=== PATIENT | female | born 1950 | race Caucasian/White ===

== ENCOUNTER 2017-05-06 08:48 | Day surgery (SDC) | payer MEDICARE, OTHER ==
[~2017-05-06] VITALS: Wt 67.6 kg
[~2017-05-06 08:48] MED LIST: AMLO10 PO; ASPI325 PO; CARV25 PO; CLON.2 PO; FURO20 PO; Fish Oil 1,0001 EAC3; LAMO25 PO; LISI5 PO; LOSA50 PO; LOSARTAN POTAS100 MG; MAGNESIUM; METHI10 PO; MOVE FREE JOIN1 EACH PO; Multivitamin1 EAC1 PO; NEBI5 PO; Norco 5-325 Ta1 EACH PO; OXCA300 PO; POTCHL10ER PO; PRAV20 PO; TOCO1000; ZINC15
== END 2017-05-06 10:07 | disposition home or self-care (01) ==
LOC: ORSCMMR 08:48
PROVIDERS: Internal Medicine Gastroenterology
PROC: 0DBP8ZX Excision of Rectum, Via Natural or Artificial Opening Endoscopic, Diagnostic (ICD-10-PCS; principal; 2017-05-06 10:00)
DX: Z12.11 Encounter for screening for malignant neoplasm of colon (principal); K62.1 Rectal polyp; K64.4 Residual hemorrhoidal skin tags; K64.8 Other hemorrhoids; K57.30 Diverticulosis of large intestine without perforation or abscess without bleeding; I10 Essential (primary) hypertension; G40.909 Epilepsy, unspecified, not intractable, without status epilepticus; Z79.82 Long term (current) use of aspirin; Z79.899 Other long term (current) drug therapy
CPT/HCPCS: 88305; J7120

== ENCOUNTER → 2017-05-28 | Outpatient (CLI) | payer MEDICARE, OTHER | END | disposition home or self-care (01) | LOC: LAB 17:52 | DX: I25.10 Atherosclerotic heart disease of native coronary artery without angina pectoris (principal); I10 Essential (primary) hypertension; R56.9 Unspecified convulsions | CPT/HCPCS: 80183 ==

== ENCOUNTER → 2017-12-16 | Outpatient (CLI) | payer MEDICARE, OTHER ==
[2017-12-16 18:15] LABS: BASOPHILS ABSOLUTE AUTO 0.04 K/mm3 (0.00-0.23); BASOPHILS PERCENT AUTO 1 % (0-2); EOSINOPHILS ABSOLUTE AUTO 0.17 K/mm3 (0.00-0.68); EOSINOPHILS PERCENT AUTO 3 % (0-6); Hematocrit 38.3 % (33.0-51.0); Hemoglobin 12.7 g/dL (11.5-16.0); IMMATURE GRAN PERCENT AUTO 0 % (0-1); LYMPHOCYTES ABSOLUTE AUTO 2.64 K/mm3 (0.84-5.20); LYMPHOCYTES PERCENT AUTO 52 % (21-46); MONOCYTES PERCENT AUTO 8 % (4-13); Mean Corpuscular HGB 31.6 pg (26.0-34.0); Mean Corpuscular HGB Conc 33.2 g/dL (31.5-36.5); Mean Corpuscular Volume 95 fL (80-100); Mean Platelet Volume 9.5 fL (9.1-12.4); NEUTROPHILS ABSOLUTE AUTO 1.79 K/mm3 (1.96-9.15); NEUTROPHILS PERCENT AUTO 36 % (41-73); Platelet Count 300 K/mm3 (150-400); RDW Coefficient Variation 13.3 % (11.7-14.2); RDW Standard Deviation 46.9 fL (35.1-46.3); Red Blood Cell Count 4.02 M/mm3 (3.80-5.20); White Blood Cell Count 5.04 K/mm3 (4.00-11.30)
[2017-12-16 18:33] LABS: Alanine Aminotransfer (ALT/SGP 63 U/L (12-78); Albumin, Blood 4.1 g/dL (3.4-5.0); Albumin/Globulin Ratio 1.2 (0.8-1.8); Alk Phos 110 U/L (50-136); Anion Gap 7 mmol/L (6-16); Aspartate Aminotrans (AST/SGOT 49 U/L (12-37); Bilirubin, Total 0.3 mg/dL (0.1-1.0); Blood Urea Nitrogen 11 mg/dL (8-24); Bun/Creatinine Ratio 16.9 (12.0-20.0); CO2, Blood 28 mmol/L (21-32); Calcium, Blood 8.8 mg/dL (8.5-10.1); Chloride, Blood 103 mmol/L (98-108); Creatinine, Blood 0.65 mg/dL (0.40-1.00); Globulin, Blood 3.4 g/dL (2.2-4.0); Glomerular Filtration Rate >60 (60-); Glucose, Blood 94 mg/dL (70-99); Potassium, Blood 3.7 mmol/L (3.5-5.5); Sodium, Blood 138 mmol/L (136-145); Total Protein, Blood 7.5 g/dL (6.4-8.2)
== END ==
LOC: LAB SHORT 09:21 → LAB 09:21
PROVIDERS: Nurse Practitioner Adult Health
DX: I10 Essential (primary) hypertension (principal); B19.20 Unspecified viral hepatitis C without hepatic coma
CPT/HCPCS: 80053; 85025

== ENCOUNTER 2018-05-28 13:34 | Observation (INO) | payer MEDICARE ==
[~2018-05-28] VITALS: Ht 167.6 cm; Wt 69.8 kg
[2018-05-28 14:20] LABS: Source, Urine Catheter
[2018-05-28 14:27] LABS: BASOPHILS ABSOLUTE AUTO 0.04 K/mm3 (0.00-0.23); BASOPHILS PERCENT AUTO 0 % (0-2); EOSINOPHILS ABSOLUTE AUTO 0.02 K/mm3 (0.00-0.68); EOSINOPHILS PERCENT AUTO 0 % (0-6); Hematocrit 45.3 % (33.0-51.0); Hemoglobin 14.7 g/dL (11.5-16.0); IMMATURE GRAN ABSOLUTE AUTO 0.07 K/mm3 (0.00-0.10); IMMATURE GRAN PERCENT AUTO 1 % (0-1); LYMPHOCYTES ABSOLUTE AUTO 2.01 K/mm3 (0.84-5.20); LYMPHOCYTES PERCENT AUTO 13 % (21-46); MONOCYTES ABSOLUTE AUTO 0.83 K/mm3 (0.16-1.47); MONOCYTES PERCENT AUTO 5 % (4-13); Mean Corpuscular HGB 32.5 pg (26.0-34.0); Mean Corpuscular HGB Conc 32.5 g/dL (31.5-36.5); Mean Corpuscular Volume 100 fL (80-100); Mean Platelet Volume 9.3 fL (9.1-12.4); NEUTROPHILS PERCENT AUTO 81 % (41-73); Platelet Count 301 K/mm3 (150-400); RDW Coefficient Variation 12.4 % (11.7-14.2); RDW Standard Deviation 46.2 fL (35.1-46.3); Red Blood Cell Count 4.53 M/mm3 (3.80-5.20); White Blood Cell Count 15.47 K/mm3 (4.00-11.30)
[2018-05-28 14:36] LABS: Bilirubin, Urine Neg (Neg); Blood, Urine 3+ (Neg); Glucose Qualitative, Urine Neg (Neg); Ketones, Urine 1+ (Neg); Leukocyte Esterase, Urine Neg (Neg); Nitrite, Urine Neg (Neg); Protein, Urine 3+ (Neg); Specific Gravity, Urine 1.015 (1.003-1.022); Urobilinogen, Urine NORM (Normal); pH, Urine 6.5 (5.0-8.0)
[2018-05-28 14:46] LABS: Alanine Aminotransfer (ALT/SGP 51 U/L (12-78); Albumin, Blood 4.4 g/dL (3.4-5.0); Alk Phos 154 U/L (50-136); Anion Gap 18 mmol/L (6-16); Aspartate Aminotrans (AST/SGOT 51 U/L (12-37); Bilirubin, Total 0.5 mg/dL (0.1-1.0); Blood Urea Nitrogen 9 mg/dL (8-24); Bun/Creatinine Ratio 14.9 (12.0-20.0); CO2, Blood 17 mmol/L (21-32); Calcium, Blood 8.6 mg/dL (8.5-10.1); Chloride, Blood 103 mmol/L (98-108); Globulin, Blood 4.5 g/dL (2.2-4.0); Glomerular Filtration Rate >60 (60-); Glucose, Blood 151 mg/dL (70-99); Potassium, Blood 3.3 mmol/L (3.5-5.5); Sodium, Blood 138 mmol/L (136-145); Total Protein, Blood 8.9 g/dL (6.4-8.2)
[2018-05-28 14:46] LABS: Color, Urine Yellow (P-Yellow)
[2018-05-28 14:47] LABS: Appearance, Urine Clear (Clear)
[2018-05-28 14:48] LABS: White Blood Cells, Urine 0-2 /hpf (0-5)
[2018-05-28 14:49] LABS: Bacteria Rare /hpf; Squamous Epithelial Cells Few /hpf (Few)
[2018-05-28 14:53] LABS: Carbamazepine <0.5 ug/mL (4.0-12.0)
[2018-05-28] MEDS ORDERED: ASCO500 PO (19:31)
[2018-05-28] MEDS ORDERED: CYAN500 PO (20:00)
[2018-05-28] MEDS ORDERED: Calcium 600 MG1 EACH PO (20:02)
[2018-05-28] MEDS ORDERED: MOVE FREE ULTR1 EAC1 PO (20:04)
[2018-05-28] MEDS ORDERED: Allergy Medicat25 MG PO (20:04)
--- NOTE | 2018-05-28 20:07 | NUR ---
SHIFT SUMMARY: Pt arrived to room about 1745 via gurney from ER. Pt opens eyes to her name and is able to state her name in a mumbled, slurred speech. Pt does not follow directions and falls back to sleep just seconds after waking to verbal stimulus. LS with crackles in bases, HR reg. Bt positive. Pulse palp. VSS. was with patient at arrival to room, but had to leave due to being unable to drive at night. Pt placed on bed alarm, call light was in reach. IVF started per orders. Pt attempted to get out of bed just now to "go pee". She pulled off her tele, gown and pulled out the IV. Pt was changed and cleaned up. New IV placed. Report given to night RN.
[2018-05-29 04:15] LABS: BASOPHILS ABSOLUTE AUTO 0.01 K/mm3 (0.00-0.23); BASOPHILS PERCENT AUTO 0 % (0-2); EOSINOPHILS PERCENT AUTO 0 % (0-6); Hematocrit 37.1 % (33.0-51.0); Hemoglobin 12.4 g/dL (11.5-16.0); IMMATURE GRAN ABSOLUTE AUTO 0.02 K/mm3 (0.00-0.10); IMMATURE GRAN PERCENT AUTO 0 % (0-1); LYMPHOCYTES ABSOLUTE AUTO 1.26 K/mm3 (0.84-5.20); LYMPHOCYTES PERCENT AUTO 13 % (21-46); MONOCYTES ABSOLUTE AUTO 0.96 K/mm3 (0.16-1.47); MONOCYTES PERCENT AUTO 10 % (4-13); Mean Corpuscular HGB 31.6 pg (26.0-34.0); Mean Corpuscular HGB Conc 33.4 g/dL (31.5-36.5); Mean Platelet Volume 9.8 fL (9.1-12.4); NEUTROPHILS ABSOLUTE AUTO 7.83 K/mm3 (1.96-9.15); NEUTROPHILS PERCENT AUTO 78 % (41-73); Platelet Count 241 K/mm3 (150-400); RDW Coefficient Variation 12.6 % (11.7-14.2); RDW Standard Deviation 43.9 fL (35.1-46.3); Red Blood Cell Count 3.93 M/mm3 (3.80-5.20); White Blood Cell Count 10.08 K/mm3 (4.00-11.30)
[2018-05-29 04:17] LABS: Mean Corpuscular Volume 94 fL (80-100)
[2018-05-29 04:30] LABS: Anion Gap 9 mmol/L (6-16); Blood Urea Nitrogen 12 mg/dL (8-24); CO2, Blood 23 mmol/L (21-32); Calcium, Blood 8.5 mg/dL (8.5-10.1); Chloride, Blood 107 mmol/L (98-108); Creatinine, Blood 0.63 mg/dL (0.40-1.00); Glomerular Filtration Rate >60 (60-); Glucose, Blood 121 mg/dL (70-99); Sodium, Blood 139 mmol/L (136-145)
--- NOTE | 2018-05-29 06:31 | NUR ---
SHIFT SUMMARY PT ALERT TO SELF AT SHIFT ONSET, BUT T/O SHIFT SHE WAS INCREASINGLY RESPONSIVE TO STAFF. SHE STILL REMAINS SLOW TO RESPOND AND DOES NOT ANSWER ALL QUESTIONS APPROPRIATELY. PT HAS BEEN ABLE TO STAND AND TRANSFER TO BSC WITH ONE TO TWO PERSON ASSIST. PT IS UNSTEADY ON HER FEET, STILL POSTICTAL FOLLOWING INCREASED SEIZURE ACTIVITY YESTERDAY. PT WAS NOT OBSERVED TO HAVE ANY SEIZURES SINCE ARRIVAL IN PCU. SHE HAS SLEPT MAJORITY OF THE SHIFT. PT DENIED ANY UNMET NEEDS, HAS BEEN CONTINENT AT TIMES. VITALS HAVE BEEN STABLE WITH NO ACUTE CHANGES OBSERVED. PT HAS HER BED IN THE LOWEST POSITION, CALL LIGHT IN REACH, 4X SIDE RAILS IN PLACE WITH SEIZURE PADS PRESENT. PT WILL CONTINUE TO BE MONITORED UNTIL HANDOFF TO DAYSHIFT RN.
--- NOTE | 2018-05-29 11:42 | NUR ---
PCU DAYSHIFT ASSUMED CARE OF PT APPROX. 0700. PT BEGINNING TO COME OUT OF POSTICTAL STATE/ SLEEPING AT THIS TIME. PT AWAKENING PT REPORTS FEELINGS "WEIRD" BUT ABLE TO OPEN EYES AND HAVE CONVERSATION. SPEECH SLIGHTLY SLURRED INTITALLY. AFTER PT AWAKE FOR APPROX. 1 HOUR PT SPEACH NO LONG SLURRED PT ABLE TO FOLLOW DIRECTIONS, OPEN MOUTH, STICK TONGUE OUT, SWALLOW ON COMMAND AND PASSED SWALLOW TEST. PT ABLE TO HAVE SOME BREAKFAST AND ABLE TO DRINK AND TAKE MORNING PILLS WITHOUT ANY COMPLICATIONS. ASSESSMENT COMPLETED, VITAL SIGNS STABLE. SEIZURE PADS REMAIN IN PLACE. AND SEIZURE PRECAUTIONS TAKEN PER PROTOCOL. PT REPORTS SHE REMEMEBERS GOING TO BED LAST NIGHT AND THAT IS IT, NOTHING MORE PAST THIS, UNITL THIS MORNING. BED IN LOW POSITION, BED ALARM ON, CALL LIGHT IN REACH AND PT DENIES ANY NEEDS AT THIS TIME.
[2018-05-29] MEDS ORDERED: Trileptal600 MG PO (15:23)
--- NOTE | 2018-05-29 15:46 | NUR ---
DISCHARGE RECIEVED DISCHARGE ORDERS FROM PMD. DISCHARGE PROCESS COMPLETED. REVIEWED DISCHARGE INFORMATION WITH PATIENT AND FAMILY THAT IS AT BEDSIDE. NO CHANGES TO MEDICATIONS. IV REMOVED. ASSISTED PT WITH GETTING DRESSED. PT ESCORTED BY PEER STAFF MEMBER VIA WHEELCHAIR TO AUTOMOBILE. NO S/SX OF ACUTE DISTRESS UPON LEAVING UNIT.
== END 2018-05-29 15:46 | disposition home or self-care (01) ==
LOC: ER 13:34 → PCU 13:35
PROVIDERS: Emergency Medicine; ADMIT Hospitalist
DX: G40.901 Epilepsy, unspecified, not intractable, with status epilepticus (principal); I10 Essential (primary) hypertension; E87.6 Hypokalemia; E87.2 Acidosis; D72.829 Elevated white blood cell count, unspecified; R80.9 Proteinuria, unspecified; E78.00 Pure hypercholesterolemia, unspecified; Z88.8 Allergy status to other drugs, medicaments and biological substances; Z79.899 Other long term (current) drug therapy; Z79.82 Long term (current) use of aspirin; Z87.820 Personal history of traumatic brain injury
CPT/HCPCS: 36415; 70450; 71046; 80048; 80053; 80156; 80175; 80183; 81001; 84146; 85025; 93005; 93010; 96361; 96365; 96366; 96372; 96374; 96375; 99285-25; G0378; J1650; J2060; J3480; J7030; P9612

== ENCOUNTER → 2018-06-04 | Outpatient (CLI) | payer MEDICARE ==
[~2018-06-04] MED LIST changes: +ASCO500 PO; +Allergy Medicat25 MG PO; +CYAN500 PO; +Calcium 600 MG1 EACH PO; +MOVE FREE ULTR1 EAC1 PO; +Trileptal600 MG PO
[2018-06-04 19:31] LABS: Anion Gap 7 mmol/L (6-16); Blood Urea Nitrogen 7 mg/dL (8-24); Bun/Creatinine Ratio 11.2 (12.0-20.0); CO2, Blood 29 mmol/L (21-32); Calcium, Blood 8.7 mg/dL (8.5-10.1); Chloride, Blood 105 mmol/L (98-108); Creatinine, Blood 0.62 mg/dL (0.40-1.00); Free Thyroxine 0.75 ng/dL (0.70-1.60); Glomerular Filtration Rate >60 (60-); Glucose, Blood 90 mg/dL (70-99); Potassium, Blood 3.7 mmol/L (3.5-5.5); Sodium, Blood 141 mmol/L (136-145)
[2018-06-04 19:34] LABS: Thyroid Stimulating Hormone 0.974 uIU/mL (0.360-4.800)
== END ==
LOC: LAB SHORT 18:15 → LAB 18:15
PROVIDERS: Nurse Practitioner Family
DX: E87.6 Hypokalemia (principal); I10 Essential (primary) hypertension
CPT/HCPCS: 80048; 84439; 84443

== ENCOUNTER → 2018-09-08 | Outpatient (CLI) | payer MEDICARE ==
[2018-09-08 18:51] LABS: BASOPHILS ABSOLUTE AUTO 0.08 K/mm3 (0.00-0.23); BASOPHILS PERCENT AUTO 1 % (0-2); EOSINOPHILS ABSOLUTE AUTO 0.29 K/mm3 (0.00-0.68); EOSINOPHILS PERCENT AUTO 5 % (0-6); Hematocrit 40.2 % (33.0-51.0); Hemoglobin 13.4 g/dL (11.5-16.0); IMMATURE GRAN PERCENT AUTO 0 % (0-1); LYMPHOCYTES ABSOLUTE AUTO 2.79 K/mm3 (0.84-5.20); LYMPHOCYTES PERCENT AUTO 44 % (21-46); MONOCYTES ABSOLUTE AUTO 0.65 K/mm3 (0.16-1.47); MONOCYTES PERCENT AUTO 10 % (4-13); Mean Corpuscular HGB 32.2 pg (26.0-34.0); Mean Corpuscular HGB Conc 33.3 g/dL (31.5-36.5); Mean Corpuscular Volume 97 fL (80-100); Mean Platelet Volume 9.6 fL (9.1-12.4); NEUTROPHILS PERCENT AUTO 41 % (41-73); Platelet Count 251 K/mm3 (150-400); RDW Standard Deviation 46.1 fL (35.1-46.3); Red Blood Cell Count 4.16 M/mm3 (3.80-5.20); White Blood Cell Count 6.41 K/mm3 (4.00-11.30)
[2018-09-08 19:34] LABS: Alanine Aminotransfer (ALT/SGP 62 U/L (12-78); Albumin, Blood 4.2 g/dL (3.4-5.0); Albumin/Globulin Ratio 1.1 (0.8-1.8); Alk Phos 126 U/L (50-136); Anion Gap 8 mmol/L (6-16); Aspartate Aminotrans (AST/SGOT 46 U/L (12-37); Bilirubin, Total 0.5 mg/dL (0.1-1.0); Blood Urea Nitrogen 11 mg/dL (8-24); Bun/Creatinine Ratio 18.4 (12.0-20.0); CHOL/HDL RATIO 2.3; CO2, Blood 28 mmol/L (21-32); Calcium, Blood 9.5 mg/dL (8.5-10.1); Carbamazepine <0.5 ug/mL (4.0-12.0); Chloride, Blood 100 mmol/L (98-108); Cholesterol 251 mg/dL (50-200); Globulin, Blood 3.9 g/dL (2.2-4.0); Glomerular Filtration Rate >60 (60-); Glucose, Blood 96 mg/dL (70-99); HDL Cholesterol 111 mg/dL (>39); LDL/HDL RATIO 1.1; Low Density Lipoprotein Chol 122 mg/dL (0-110); Potassium, Blood 3.6 mmol/L (3.5-5.5); Sodium, Blood 136 mmol/L (136-145); Total Protein, Blood 8.1 g/dL (6.4-8.2); Triglycerides 90 mg/dL (30-160); Very Low Density Lipoprot Chol 18 mg/dL (6-32)
== END ==
LOC: LAB SHORT 18:15 → LAB 18:15
PROVIDERS: Nurse Practitioner Family
DX: E78.5 Hyperlipidemia, unspecified (principal); G40.909 Epilepsy, unspecified, not intractable, without status epilepticus; I10 Essential (primary) hypertension
CPT/HCPCS: 80053; 80061; 80156; 85025

== ENCOUNTER → 2018-09-30 | Outpatient (CLI) | payer MEDICARE | END | disposition home or self-care (01) | LOC: LAB 18:10 → LAB SHORT 18:10 | PROVIDERS: Nurse Practitioner Family | DX: G40.319 Generalized idiopathic epilepsy and epileptic syndromes, intractable, without status epilepticus (principal); G40.909 Epilepsy, unspecified, not intractable, without status epilepticus; Z87.820 Personal history of traumatic brain injury | CPT/HCPCS: 80175; 80183 ==

== ENCOUNTER → 2018-12-10 | Outpatient (CLI) | payer MEDICARE, OTHER ==
[2018-12-10 17:36] LABS: BASOPHILS ABSOLUTE AUTO 0.07 K/mm3 (0.00-0.23); BASOPHILS PERCENT AUTO 1 % (0-2); EOSINOPHILS ABSOLUTE AUTO 0.19 K/mm3 (0.00-0.68); EOSINOPHILS PERCENT AUTO 3 % (0-6); Hematocrit 40.4 % (33.0-51.0); Hemoglobin 13.6 g/dL (11.5-16.0); IMMATURE GRAN ABSOLUTE AUTO 0.01 K/mm3 (0.00-0.10); IMMATURE GRAN PERCENT AUTO 0 % (0-1); LYMPHOCYTES ABSOLUTE AUTO 2.49 K/mm3 (0.84-5.20); LYMPHOCYTES PERCENT AUTO 43 % (21-46); MONOCYTES ABSOLUTE AUTO 0.58 K/mm3 (0.16-1.47); MONOCYTES PERCENT AUTO 10 % (4-13); Mean Corpuscular HGB 32.3 pg (26.0-34.0); Mean Corpuscular HGB Conc 33.7 g/dL (31.5-36.5); Mean Corpuscular Volume 96 fL (80-100); Mean Platelet Volume 9.3 fL (9.1-12.4); NEUTROPHILS ABSOLUTE AUTO 2.47 K/mm3 (1.96-9.15); NEUTROPHILS PERCENT AUTO 42 % (41-73); Platelet Count 306 K/mm3 (150-400); RDW Coefficient Variation 12.3 % (11.7-14.2); RDW Standard Deviation 43.9 fL (35.1-46.3); Red Blood Cell Count 4.21 M/mm3 (3.80-5.20); White Blood Cell Count 5.81 K/mm3 (4.00-11.30)
[2018-12-10 18:00] LABS: Alanine Aminotransfer (ALT/SGP 54 U/L (12-78); Albumin, Blood 4.1 g/dL (3.4-5.0); Albumin/Globulin Ratio 1.1 (0.8-1.8); Alk Phos 141 U/L (50-136); Anion Gap 4 mmol/L (6-16); Aspartate Aminotrans (AST/SGOT 46 U/L (12-37); Bilirubin, Total 0.4 mg/dL (0.1-1.0); Blood Urea Nitrogen 7 mg/dL (8-24); Bun/Creatinine Ratio 11.2 (12.0-20.0); CO2, Blood 29 mmol/L (21-32); Calcium, Blood 9.8 mg/dL (8.5-10.1); Chloride, Blood 101 mmol/L (98-108); Creatinine, Blood 0.62 mg/dL (0.40-1.00); Globulin, Blood 3.8 g/dL (2.2-4.0); Glomerular Filtration Rate >60 (60-); Glucose, Blood 104 mg/dL (70-99); Potassium, Blood 3.9 mmol/L (3.5-5.5); Sodium, Blood 134 mmol/L (136-145); Total Protein, Blood 7.9 g/dL (6.4-8.2)
== END | disposition home or self-care (01) ==
LOC: LAB SHORT 17:20 → LAB 17:20
PROVIDERS: Nurse Practitioner Family
DX: I10 Essential (primary) hypertension (principal)
CPT/HCPCS: 80053; 85025

== ENCOUNTER 2019-01-27 13:04 | Emergency (ER) | payer MEDICARE, OTHER ==
[~2019-01-27] VITALS: Ht 167.6 cm; Wt 74.8 kg
== END 2019-01-27 14:33 | disposition home or self-care (01) ==
LOC: ER 13:04
DX: S59.202A Unspecified physeal fracture of lower end of radius, left arm, initial encounter for closed fracture (principal); S60.212A Contusion of left wrist, initial encounter; I10 Essential (primary) hypertension; G40.909 Epilepsy, unspecified, not intractable, without status epilepticus; E78.5 Hyperlipidemia, unspecified; Z88.8 Allergy status to other drugs, medicaments and biological substances; Z79.899 Other long term (current) drug therapy; Z79.82 Long term (current) use of aspirin; W01.10XA Fall on same level from slipping, tripping and stumbling with subsequent striking against unspecified object, initial encounter
CPT/HCPCS: 29125; 73110; 80053; 85025; 99283-25

== ENCOUNTER → 2019-01-27 | Outpatient (CLI) | payer MEDICARE, OTHER ==
[2019-01-27 19:57] LABS: BASOPHILS ABSOLUTE AUTO 0.05 K/mm3 (0.00-0.23); BASOPHILS PERCENT AUTO 1 % (0-2); EOSINOPHILS ABSOLUTE AUTO 0.13 K/mm3 (0.00-0.68); EOSINOPHILS PERCENT AUTO 2 % (0-6); Hematocrit 40.7 % (33.0-51.0); Hemoglobin 13.8 g/dL (11.5-16.0); IMMATURE GRAN ABSOLUTE AUTO 0.01 K/mm3 (0.00-0.10); IMMATURE GRAN PERCENT AUTO 0 % (0-1); LYMPHOCYTES ABSOLUTE AUTO 2.36 K/mm3 (0.84-5.20); LYMPHOCYTES PERCENT AUTO 33 % (21-46); MONOCYTES ABSOLUTE AUTO 0.64 K/mm3 (0.16-1.47); MONOCYTES PERCENT AUTO 9 % (4-13); Mean Corpuscular HGB 32.2 pg (26.0-34.0); Mean Corpuscular HGB Conc 33.9 g/dL (31.5-36.5); Mean Corpuscular Volume 95 fL (80-100); Mean Platelet Volume 9.4 fL (9.1-12.4); NEUTROPHILS ABSOLUTE AUTO 4.04 K/mm3 (1.96-9.15); NEUTROPHILS PERCENT AUTO 56 % (41-73); Platelet Count 299 K/mm3 (150-400); RDW Coefficient Variation 12.5 % (11.7-14.2); RDW Standard Deviation 43.4 fL (35.1-46.3); Red Blood Cell Count 4.29 M/mm3 (3.80-5.20); White Blood Cell Count 7.23 K/mm3 (4.00-11.30)
[2019-01-27 20:39] LABS: Alanine Aminotransfer (ALT/SGP 73 U/L (12-78); Albumin, Blood 4.2 g/dL (3.4-5.0); Alk Phos 134 U/L (50-136); Anion Gap 8 mmol/L (6-16); Aspartate Aminotrans (AST/SGOT 56 U/L (12-37); Bilirubin, Total 0.5 mg/dL (0.1-1.0); Blood Urea Nitrogen 6 mg/dL (8-24); Bun/Creatinine Ratio 9.6 (12.0-20.0); CO2, Blood 28 mmol/L (21-32); Calcium, Blood 9.5 mg/dL (8.5-10.1); Chloride, Blood 98 mmol/L (98-108); Creatinine, Blood 0.62 mg/dL (0.40-1.00); Globulin, Blood 4.1 g/dL (2.2-4.0); Glomerular Filtration Rate >60 (60-); Glucose, Blood 95 mg/dL (70-99); Potassium, Blood 3.3 mmol/L (3.5-5.5); Sodium, Blood 134 mmol/L (136-145); Total Protein, Blood 8.3 g/dL (6.4-8.2)
== END | disposition home or self-care (01) ==
LOC: LAB 18:17 → LAB SHORT 18:17
PROVIDERS: Nurse Practitioner Family
DX: I10 Essential (primary) hypertension (principal)
CPT/HCPCS: 80053; 85025

== ENCOUNTER → 2019-03-03 | Outpatient (CLI) | payer MEDICARE, OTHER ==
[2019-03-03 20:03] LABS: Anion Gap 7 mmol/L (6-16); Blood Urea Nitrogen 10 mg/dL (8-24); Bun/Creatinine Ratio 15.3 (12.0-20.0); CO2, Blood 30 mmol/L (21-32); Calcium, Blood 9.6 mg/dL (8.5-10.1); Chloride, Blood 92 mmol/L (98-108); Creatinine, Blood 0.65 mg/dL (0.40-1.00); Glomerular Filtration Rate >60 (60-); Glucose, Blood 102 mg/dL (70-99); Potassium, Blood 3.4 mmol/L (3.5-5.5); Sodium, Blood 129 mmol/L (136-145)
== END ==
LOC: LAB SHORT 18:16 → LAB 18:16 → EDSTATUS 03-04 09:20 → LAB FUT 03-04 09:20
PROVIDERS: Nurse Practitioner Family
DX: E87.6 Hypokalemia (principal)
CPT/HCPCS: 80048

== ENCOUNTER → 2019-03-17 | Outpatient (CLI) | payer MEDICARE, SELFPAY ==
[2019-03-17 20:20] LABS: Anion Gap 8 mmol/L (6-16); Blood Urea Nitrogen 5 mg/dL (8-24); Bun/Creatinine Ratio 9.3 (12.0-20.0); CO2, Blood 29 mmol/L (21-32); Calcium, Blood 9.4 mg/dL (8.5-10.1); Chloride, Blood 95 mmol/L (98-108); Creatinine, Blood 0.54 mg/dL (0.40-1.00); Glomerular Filtration Rate >60 (60-); Glucose, Blood 98 mg/dL (70-99); Potassium, Blood 3.7 mmol/L (3.5-5.5); Sodium, Blood 132 mmol/L (136-145)
== END | disposition home or self-care (01) ==
LOC: LAB SHORT 18:14 → LAB 18:14 → EDSTATUS 03-17 11:25 → LAB FUT 03-17 11:25
PROVIDERS: Nurse Practitioner Family
DX: E87.6 Hypokalemia (principal)
CPT/HCPCS: 80048

== ENCOUNTER 2020-01-18 17:15 | Emergency (ER) | payer MEDICARE ==
[~2020-01-18] VITALS: Ht 167.6 cm; Wt 65.8 kg
[2020-01-18] MEDS ORDERED: IBUP600 PO (19:10)
[2020-01-18] MEDS ORDERED: Robaxin-750750 MG PO (19:10)
[2020-01-18] MEDS ORDERED: Norco 5-325 Ta1 EACH PO (19:10)
== END 2020-01-18 19:18 | disposition home or self-care (01) ==
LOC: ER 17:15
DX: M54.5 Low back pain (principal)
CPT/HCPCS: 72100; 99283-25; A9270-GY

== ENCOUNTER → 2020-02-03 | Outpatient (CLI) | payer MEDICARE ==
[~2020-02-03] MED LIST changes: +IBUP600 PO; +Robaxin-750750 MG PO
[2020-02-03 18:22] LABS: Free Thyroxine 0.67 ng/dL (0.70-1.60)
[2020-02-03 18:28] LABS: Thyroid Stimulating Hormone 2.42 uIU/mL (0.360-4.800)
== END | disposition home or self-care (01) ==
LOC: LAB SHORT 16:15 → LAB 16:15
PROVIDERS: Nurse Practitioner Family
DX: M81.0 Age-related osteoporosis without current pathological fracture (principal)
CPT/HCPCS: 82306; 82533; 83970; 84439; 84443; 86376

== ENCOUNTER → 2020-02-24 | Outpatient (CLI) | payer MEDICARE, OTHER | END | disposition home or self-care (01) | LOC: LAB SHORT 15:04 → LAB 15:04 → LAB FUT 02-14 14:30 | PROVIDERS: Nurse Practitioner Family | DX: R89.1 Abnormal level of hormones in specimens from other organs, systems and tissues (principal) | CPT/HCPCS: 81050; 82530 ==

== ENCOUNTER 2020-04-04 12:19 | Emergency (ER) | payer MEDICARE ==
[~2020-04-04] VITALS: Ht 193 cm; Wt 74.8 kg
[2020-04-04] MEDS ORDERED: Carvedilol12.5 MG PO (14:00)
[2020-04-04] MEDS ORDERED: HYDR1TAB94 PO (15:02)
== END 2020-04-04 15:07 | disposition home or self-care (01) ==
LOC: ER 12:19
DX: R07.89 Other chest pain (principal); S06.9X9A Unspecified intracranial injury with loss of consciousness of unspecified duration, initial encounter; R07.81 Pleurodynia; E03.9 Hypothyroidism, unspecified; G40.909 Epilepsy, unspecified, not intractable, without status epilepticus; E78.5 Hyperlipidemia, unspecified; F17.200 Nicotine dependence, unspecified, uncomplicated; Z88.1 Allergy status to other antibiotic agents; Z88.8 Allergy status to other drugs, medicaments and biological substances; Z79.82 Long term (current) use of aspirin; Z79.899 Other long term (current) drug therapy; W01.198A Fall on same level from slipping, tripping and stumbling with subsequent striking against other object, initial encounter
CPT/HCPCS: 71046; 99283-25

== ENCOUNTER → 2020-04-06 | Outpatient (CLI) | payer MEDICARE, SELFPAY ==
[~2020-04-06] MED LIST changes: +Carvedilol12.5 MG PO; +HYDR1TAB94 PO
[2020-04-06 20:03] LABS: CHOL/HDL RATIO 1.7; Cholesterol 195 mg/dL (50-200); HDL Cholesterol 114 mg/dL (>39); LDL/HDL RATIO 0.6; Low Density Lipoprotein Chol 63 mg/dL (0-110); Triglycerides 91 mg/dL (30-160); Very Low Density Lipoprot Chol 18 mg/dL (6-32)
[2020-04-06 20:09] LABS: Alanine Aminotransfer (ALT/SGP 54 U/L (12-78); Albumin, Blood 3.9 g/dL (3.4-5.0); Alk Phos 171 U/L (50-136); Anion Gap 8 mmol/L (6-16); Aspartate Aminotrans (AST/SGOT 54 U/L (12-37); Bilirubin, Total 0.6 mg/dL (0.1-1.0); Blood Urea Nitrogen 8 mg/dL (8-24); Bun/Creatinine Ratio 12.4 (12.0-20.0); CO2, Blood 27 mmol/L (21-32); Calcium, Blood 9.7 mg/dL (8.5-10.1); Chloride, Blood 103 mmol/L (98-108); Creatinine, Blood 0.64 mg/dL (0.40-1.00); Globulin, Blood 3.9 g/dL (2.2-4.0); Glomerular Filtration Rate >60 (60-); Glucose, Blood 102 mg/dL (70-99); Potassium, Blood 4.2 mmol/L (3.5-5.5); Sodium, Blood 138 mmol/L (136-145); Total Protein, Blood 7.8 g/dL (6.4-8.2)
== END | disposition home or self-care (01) ==
LOC: LAB 16:33 → LAB SHORT 16:33
PROVIDERS: Nurse Practitioner Family
DX: G40.909 Epilepsy, unspecified, not intractable, without status epilepticus (principal); E78.5 Hyperlipidemia, unspecified; I10 Essential (primary) hypertension
CPT/HCPCS: 80053; 80061; 80175; 80183

== ENCOUNTER 2020-07-01 08:49 | Emergency (ER) | payer MEDICARE ==
[~2020-07-01] VITALS: Ht 167.6 cm; Wt 74.8 kg
== END 2020-07-01 09:22 | disposition home or self-care (01) ==
LOC: ER 08:49
DX: S01.102D Unspecified open wound of left eyelid and periocular area, subsequent encounter (principal); I10 Essential (primary) hypertension; E78.5 Hyperlipidemia, unspecified; E03.9 Hypothyroidism, unspecified; F17.200 Nicotine dependence, unspecified, uncomplicated; Z88.8 Allergy status to other drugs, medicaments and biological substances; Z79.82 Long term (current) use of aspirin; X58.XXXD Exposure to other specified factors, subsequent encounter

== ENCOUNTER → 2021-01-24 | Outpatient (CLI) | payer MEDICARE ==
[2021-01-24 16:12] LABS: Creatinine Urine 64.6 mg/dL (27.00-270.00)
== END | disposition home or self-care (01) ==
LOC: LAB 07:52 → LAB SHORT 07:52
PROVIDERS: Internal Medicine Endocrinology, Diabetes & Metabolism
DX: E24.9 Cushing's syndrome, unspecified (principal)
CPT/HCPCS: 81050; 82570

== ENCOUNTER → 2021-02-13 | Outpatient (CLI) | payer MEDICARE ==
[2021-02-13 18:20] LABS: BASOPHILS ABSOLUTE AUTO 0.05 K/mm3 (0.00-0.23); BASOPHILS PERCENT AUTO 1 % (0-2); EOSINOPHILS ABSOLUTE AUTO 0.19 K/mm3 (0.00-0.68); EOSINOPHILS PERCENT AUTO 3 % (0-6); Hematocrit 39.3 % (33.0-51.0); IMMATURE GRAN ABSOLUTE AUTO 0.02 K/mm3 (0.00-0.10); IMMATURE GRAN PERCENT AUTO 0 % (0-1); LYMPHOCYTES ABSOLUTE AUTO 2.05 K/mm3 (0.84-5.20); LYMPHOCYTES PERCENT AUTO 27 % (21-46); MONOCYTES ABSOLUTE AUTO 0.61 K/mm3 (0.16-1.47); MONOCYTES PERCENT AUTO 8 % (4-13); Mean Corpuscular HGB 30.7 pg (26.0-34.0); Mean Corpuscular HGB Conc 33.1 g/dL (31.5-36.5); Mean Corpuscular Volume 93 fL (80-100); Mean Platelet Volume 9.8 fL (9.1-12.4); NEUTROPHILS PERCENT AUTO 61 % (41-73); Platelet Count 314 K/mm3 (150-400); RDW Coefficient Variation 13.2 % (11.7-14.2); RDW Standard Deviation 44.8 fL (35.1-46.3); Red Blood Cell Count 4.24 M/mm3 (3.80-5.20); White Blood Cell Count 7.52 K/mm3 (4.00-11.30)
[2021-02-13 18:30] LABS: CHOL/HDL RATIO 2.1; Cholesterol 202 mg/dL (50-200); HDL Cholesterol 95 mg/dL (>39); LDL/HDL RATIO 0.8; Low Density Lipoprotein Chol 79 mg/dL (0-110); Triglycerides 141 mg/dL (30-160); Very Low Density Lipoprot Chol 28 mg/dL (6-32)
[2021-02-13 18:50] LABS: Alanine Aminotransfer (ALT/SGP 57 U/L (12-78); Albumin, Blood 4.1 g/dL (3.4-5.0); Alk Phos 159 U/L (50-136); Anion Gap 7 mmol/L (6-16); Aspartate Aminotrans (AST/SGOT 58 U/L (12-37); Bilirubin, Total 0.5 mg/dL (0.1-1.0); Blood Urea Nitrogen 8 mg/dL (8-24); Bun/Creatinine Ratio 10.6 (12.0-20.0); CO2, Blood 29 mmol/L (21-32); Calcium, Blood 10.1 mg/dL (8.5-10.1); Chloride, Blood 103 mmol/L (98-108); Creatinine, Blood 0.75 mg/dL (0.40-1.00); Globulin, Blood 4.2 g/dL (2.2-4.0); Glomerular Filtration Rate >60 (60-); Glucose, Blood 110 mg/dL (70-99); Sodium, Blood 139 mmol/L (136-145); Total Protein, Blood 8.3 g/dL (6.4-8.2)
== END | disposition home or self-care (01) ==
LOC: LAB SHORT 16:27
PROVIDERS: Nurse Practitioner Family
DX: E78.5 Hyperlipidemia, unspecified (principal); G40.909 Epilepsy, unspecified, not intractable, without status epilepticus; I10 Essential (primary) hypertension
CPT/HCPCS: 80053; 80061; 80175; 84443; 85025

== ENCOUNTER → 2021-11-28 | Outpatient (CLI) | payer MEDICARE | END | disposition home or self-care (01) | LOC: LAB SHORT 08:10 → LAB 08:10 | PROVIDERS: Psychiatry & Neurology Neurology | DX: G40.219 Localization-related (focal) (partial) symptomatic epilepsy and epileptic syndromes with complex partial seizures, intractable, without status epilepticus (principal); Z87.820 Personal history of traumatic brain injury | CPT/HCPCS: 80175; 80183 ==

== ENCOUNTER 2022-01-23 18:39 | Inpatient (IN) | payer MEDICARE ==
[~2022-01-23] VITALS: Ht 167.6 cm; Wt 78.8 kg
[2022-01-23 19:47] LABS: BASOPHILS ABSOLUTE AUTO 0.07 K/mm3 (0.00-0.23); BASOPHILS PERCENT AUTO 1 % (0-2); EOSINOPHILS ABSOLUTE AUTO 0.45 K/mm3 (0.00-0.68); EOSINOPHILS PERCENT AUTO 5 % (0-6); Hematocrit 32.9 % (33.0-51.0); Hemoglobin 11.2 g/dL (11.5-16.0); IMMATURE GRAN ABSOLUTE AUTO 0.07 K/mm3 (0.00-0.10); IMMATURE GRAN PERCENT AUTO 1 % (0-1); LYMPHOCYTES ABSOLUTE AUTO 2.32 K/mm3 (0.84-5.20); LYMPHOCYTES PERCENT AUTO 24 % (21-46); MONOCYTES ABSOLUTE AUTO 1.16 K/mm3 (0.16-1.47); MONOCYTES PERCENT AUTO 12 % (4-13); Mean Corpuscular HGB 32.9 pg (26.0-34.0); Mean Corpuscular Volume 97 fL (80-100); NEUTROPHILS ABSOLUTE AUTO 5.42 K/mm3 (1.96-9.15); NEUTROPHILS PERCENT AUTO 57 % (41-73); Platelet Count 340 K/mm3 (150-400); RDW Coefficient Variation 13.6 % (11.7-14.2); White Blood Cell Count 9.49 K/mm3 (4.00-11.30)
[2022-01-23 19:59] LABS: Albumin/Globulin Ratio 0.8 (0.8-1.8); Bilirubin, Total 0.9 mg/dL (0.1-1.0); Bun/Creatinine Ratio 33.1 (12.0-20.0); Creatinine, Blood 0.54 mg/dL (0.40-1.00); Potassium, Blood 3.9 mmol/L (3.5-5.5)
[2022-01-23 20:26] LABS: Creatine Kinase MB 2.4 ng/mL (0.0-3.6); Creatine Kinase MB Index 0.4 (0.0-4.0)
[2022-01-23 20:55] LABS: Source, Urine Clean Catch
[2022-01-23 20:58] LABS: Appearance, Urine Hazy (Clear); Bilirubin, Urine Neg (Neg); Blood, Urine Neg (Neg); Color, Urine Amber (P-Yellow); Glucose Qualitative, Urine Neg (Neg); Ketones, Urine Neg (Neg); Leukocyte Esterase, Urine 1+ (Neg); Nitrite, Urine Neg (Neg); Protein, Urine 2+ (Neg); Specific Gravity, Urine 1.025 (1.003-1.022); Urobilinogen, Urine 1+ (Normal)
[2022-01-23 21:33] LABS: Amorphous Heavy (0-Heavy); Bacteria Mod /hpf; Red Blood Cells, Urine Not Seen /hpf (0-2); Squamous Epithelial Cells Few /hpf (Few)
[2022-01-24 00:30] LABS: SARS-Cov-2 (COVID-19) PCR, MMC NEGATIVE (NEGATIVE)
--- NOTE | 2022-01-24 00:47 | NUR ---
NEW ADMIT PATIENT TO THE FLOOR AT 2300, VSS, ORIENTED TO ROOM, ORDERS REVIEWED. SURGICAL WASHDOWN COMPLETE. TELE IN PLACE, BP ELEVATED 184/96 HYDRALAZINE GIVEN PER EMAR. WILL REASSESS. PATIENT REPORTS NO PAIN AT THIS TIME. CALL LIGHT IN REACH.
--- NOTE | 2022-01-24 02:47 | NUR ---
PANG CATH PLACED, USING STERILE TECHNIQUE, DRAINING DARK YELLOW CLEAR URINE TO GRAVITY. OFF FLOOR, STAT LOCK IN PLACE.
[2022-01-24 02:48] LABS: Source, Urine Foley catheter
[2022-01-24 03:01] LABS: Appearance, Urine Hazy (Clear); Bilirubin, Urine Neg (Neg); Blood, Urine Neg (Neg); Color, Urine Yellow (P-Yellow); Glucose Qualitative, Urine Neg (Neg); Ketones, Urine 1+ (Neg); Leukocyte Esterase, Urine 2+ (Neg); Nitrite, Urine Neg (Neg); Protein, Urine 2+ (Neg); Urobilinogen, Urine 1+ (Normal)
[2022-01-24 03:02] LABS: Amorphous Mod (0-Heavy); Bacteria Mod /hpf; Red Blood Cells, Urine Not Seen /hpf (0-2); Squamous Epithelial Cells Few /hpf (Few)
[2022-01-24 04:49] LABS: Bun/Creatinine Ratio 28.2 (12.0-20.0); Calcium, Blood 8.5 mg/dL (8.5-10.1); Creatinine, Blood 0.5 mg/dL (0.40-1.00); Potassium, Blood 3.6 mmol/L (3.5-5.5)
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
--- NOTE | 2022-01-24 09:00 | NUR ---
PATIENTS BLOOD PRESSURE REMAINS HIGH AT 169/90. PHONE CALL TO DR CARLOS, GAVE TELEPHONE ORDERS TO GIVE PATIENTS HOME BLOOD PRESSURE MEDICATIONS WITH A SIP OF WATER.
--- NOTE | 2022-01-24 11:45 | NUR ---
PATIENT TO DAY SURGERY VIA BED WITH 2 DAY SURGERY STAFF
--- NOTE | 2022-01-24 16:00 | NUR ---
PATIENT RETURNED TO ROOM FROM PACU. AQUACEL TO R HIP, PATIENT HAS FULL SENSATION TO LOWER EXTREMITIES, WIGGLES TOES. DENIES PAIN AT THIS TIME. LUNGS CLEAR, DIMINISHED IN BASES. PATIENT IS FORGETFUL, BUT EASILY REORIENTED. 2L O2 PLACED D/T SATS DROPPING BELOW 90%. CALL LIGHT IN REACH.
--- NOTE | 2022-01-24 18:14 | NUR ---
SHIFT SUMMARY NO ACUTE CHANGES SINCE PATIENT RETURNED TO ROOM. PATIENT SLEEPING WELL, 2L O2 PLACED D/T O2 SATS DROPPING BELOW 90%. PANG REMAINS IN PLACE, DRAINING DARK YELLOW URINE. PATIENT DENIES PAIN. TOLERATING SIPS OF WATER, HAS NOT YET EATEN. CALL LIGHT IN REACH, WILL REPORT TO ONCOMING RN.
[2022-01-25 04:42] LABS: BASOPHILS ABSOLUTE AUTO 0.04 K/mm3 (0.00-0.23); BASOPHILS PERCENT AUTO 0 % (0-2); EOSINOPHILS ABSOLUTE AUTO 0.29 K/mm3 (0.00-0.68); EOSINOPHILS PERCENT AUTO 3 % (0-6); Hematocrit 29.7 % (33.0-51.0); Hemoglobin 9.9 g/dL (11.5-16.0); IMMATURE GRAN ABSOLUTE AUTO 0.06 K/mm3 (0.00-0.10); IMMATURE GRAN PERCENT AUTO 1 % (0-1); LYMPHOCYTES ABSOLUTE AUTO 2.39 K/mm3 (0.84-5.20); LYMPHOCYTES PERCENT AUTO 26 % (21-46); MONOCYTES ABSOLUTE AUTO 0.92 K/mm3 (0.16-1.47); MONOCYTES PERCENT AUTO 10 % (4-13); Mean Corpuscular HGB 32.6 pg (26.0-34.0); Mean Corpuscular HGB Conc 33.3 g/dL (31.5-36.5); Mean Corpuscular Volume 98 fL (80-100); Mean Platelet Volume 8.6 fL (9.1-12.4); NEUTROPHILS PERCENT AUTO 59 % (41-73); Platelet Count 329 K/mm3 (150-400); RDW Coefficient Variation 13.6 % (11.7-14.2); Red Blood Cell Count 3.04 M/mm3 (3.80-5.20)
--- NOTE | 2022-01-25 04:57 | NUR ---
SHIFT SUMMARY: A&OX2/3. PT WAS VERY TIRED AND GROGGY AT BEGINNING OF SHIFT. CONFUSED AT TIMES REGARDING LOCATION, SITUATION, AND TIME. TOLERATING PO FLUIDS AND JELLO. PT VOIDING, BOTH URINE AND STOOL. AQUACEL X1 IN PLACE ON R HIP. C/D/I AT THIS TIME. PT URINE WAS DARK CHARITO, DISCUSSED WITH MUSIC INSTRUCTOR. DR. CALLEJAS WAS CONTACTED AND ORDER FOR NS WAS ORDERED. PT IS MORE ALERT, AWAKE, AND ANSWERING APPROPRIATELY AT THIS TIME.
[2022-01-25 05:04] LABS: Albumin, Blood 2.6 g/dL (3.4-5.0); Albumin/Globulin Ratio 0.8 (0.8-1.8); Bilirubin, Total 0.7 mg/dL (0.1-1.0); Bun/Creatinine Ratio 21.5 (12.0-20.0); Calcium, Blood 8.3 mg/dL (8.5-10.1); Creatinine, Blood 0.61 mg/dL (0.40-1.00); Globulin, Blood 3.3 g/dL (2.2-4.0); Potassium, Blood 4.1 mmol/L (3.5-5.5); Total Protein, Blood 5.9 g/dL (6.4-8.2)
--- NOTE | 2022-01-25 11:09 | NUR ---
Pt. is awake in a recliner and welcomes my visit. Pt. is pleasant but a little unsettled about her who is (at this moment) undergoing cataract surgery at [facility]. Facilitated a life review and prayed with Pt. Pt. displayed evidence of engagement and trust and reached out her hand to this salon assistant. Prayed wih Pt. Pt. verbalized gratitude for the spiritual care visit.
--- NOTE | 2022-01-25 16:17 | NUR ---
SHIFT SUMMARY POD 1 R ITALO HIP. AQUACEL IN PLACE TO R HIP, C/D/I. PATIENT WORKED WITH PT & OT TODAY, MODERATE 2P ASSIST W/ FWW & GB. MINIMAL PAIN, MANAGED PER EMAR. EATING & DRINKING WELL. PANG REMAINS IN PLACE, DRAINING CLEAR YELLOW URINE. LARGE BM TODAY. ATTENDS IN PLACE. CALLS APPROPRIATELY. WILL REPORT TO ONCOMING RN.
[2022-01-26 04:34] LABS: BASOPHILS ABSOLUTE AUTO 0.04 K/mm3 (0.00-0.23); BASOPHILS PERCENT AUTO 1 % (0-2); EOSINOPHILS ABSOLUTE AUTO 0.24 K/mm3 (0.00-0.68); EOSINOPHILS PERCENT AUTO 3 % (0-6); Hematocrit 27.5 % (33.0-51.0); Hemoglobin 9.6 g/dL (11.5-16.0); IMMATURE GRAN ABSOLUTE AUTO 0.08 K/mm3 (0.00-0.10); IMMATURE GRAN PERCENT AUTO 1 % (0-1); LYMPHOCYTES ABSOLUTE AUTO 1.86 K/mm3 (0.84-5.20); LYMPHOCYTES PERCENT AUTO 24 % (21-46); MONOCYTES ABSOLUTE AUTO 0.82 K/mm3 (0.16-1.47); MONOCYTES PERCENT AUTO 11 % (4-13); Mean Corpuscular HGB 33.4 pg (26.0-34.0); Mean Corpuscular HGB Conc 34.9 g/dL (31.5-36.5); Mean Corpuscular Volume 96 fL (80-100); Mean Platelet Volume 8.7 fL (9.1-12.4); NEUTROPHILS ABSOLUTE AUTO 4.75 K/mm3 (1.96-9.15); NEUTROPHILS PERCENT AUTO 61 % (41-73); Platelet Count 320 K/mm3 (150-400); RDW Coefficient Variation 13.4 % (11.7-14.2); RDW Standard Deviation 46.2 fL (35.1-46.3); Red Blood Cell Count 2.87 M/mm3 (3.80-5.20); White Blood Cell Count 7.79 K/mm3 (4.00-11.30)
[2022-01-26 05:04] LABS: Albumin, Blood 2.4 g/dL (3.4-5.0); Albumin/Globulin Ratio 0.7 (0.8-1.8); Bilirubin, Total 0.7 mg/dL (0.1-1.0); Bun/Creatinine Ratio 24.5 (12.0-20.0); Calcium, Blood 8.6 mg/dL (8.5-10.1); Creatinine, Blood 0.53 mg/dL (0.40-1.00); Globulin, Blood 3.4 g/dL (2.2-4.0); Potassium, Blood 3.7 mmol/L (3.5-5.5); Total Protein, Blood 5.8 g/dL (6.4-8.2)
--- NOTE | 2022-01-26 05:19 | NUR ---
SHIFT SUMMARY PT ALERT AND ORIENTED. PLEASANT AND COOPERATIVE. PT DID NOT NEED PAIN COVERAGE THIS SHIFT. 2 ASSIST WITH FWW/GB. R HIP AQUACEL HAD SOME LIGHT SHADOWING. PANG IN PLACE DRAINING TO GRAVITY, YELLOW/CLEAR. ATTENDS IN PLACE, TOLERATING PO INTAKE. CALLS APPROPRIATELY, CALL LIGHT WITHIN REACH.
--- NOTE | 2022-01-26 17:52 | NUR ---
1 PERSON TRANSFER TO [facility]. PT COOPERATIVE, ORIENTED THROOUGHOUT SHIFT ON OCCASSION REPEATS SAME QUESTION WITHIN A FEW MINUTES.RIGHT HIP DRESSING CHANGED TODAY AND IS DRY AND INTACT. PT HAS DENIED PAIN AND DECLINED ANY PAIN MEDS. PLAN TO TRANSFER PATIENT THIS EVENING TO [facility]. PT IS AWARE OF TRANSFER PLAN AND IS IN AGREEMENT WITH THIS PLAN
[2022-01-26 18:08] LABS: SARS-Cov-2 (COVID-19) PCR, MMC NEGATIVE (NEGATIVE)
--- NOTE | 2022-01-26 18:32 | NUR ---
REPORT PHONED TO MIRIAM AT [facility]
--- NOTE | 2022-01-26 19:05 | NUR ---
1850 discharged via wheelchair with [facility] staff to transfer to [facility]
== END 2022-01-26 18:56 | DRG 522 ==
LOC: ER 18:39 → SURS 21:12
PROVIDERS: Emergency Medicine; Internal Medicine; Orthopaedic Surgery; ADMIT Internal Medicine
PROC: 0SRR0JZ Replacement of Right Hip Joint, Femoral Surface with Synthetic Substitute, Open Approach (ICD-10-PCS; principal; 2022-01-24 12:30)
DX: S72.001A Fracture of unspecified part of neck of right femur, initial encounter for closed fracture (principal); N39.0 Urinary tract infection, site not specified; M62.82 Rhabdomyolysis; Z20.822 Contact with and (suspected) exposure to COVID-19; B95.5 Unspecified streptococcus as the cause of diseases classified elsewhere; I10 Essential (primary) hypertension; G40.909 Epilepsy, unspecified, not intractable, without status epilepticus; R74.01 Elevation of levels of liver transaminase levels; E03.9 Hypothyroidism, unspecified; E78.5 Hyperlipidemia, unspecified; D64.89 Other specified anemias; W18.30XA Fall on same level, unspecified, initial encounter; Y92.009 Unspecified place in unspecified non-institutional (private) residence as the place of occurrence of the external cause; Z79.899 Other long term (current) drug therapy; Z88.8 Allergy status to other drugs, medicaments and biological substances; Z79.82 Long term (current) use of aspirin; Z87.891 Personal history of nicotine dependence; Z87.820 Personal history of traumatic brain injury
CPT/HCPCS: 36415; 51702; 72170; 73130; 73502; 73562-RT; 80048; 80053; 81001; 82550; 82553; 82728; 83540; 83550; 85025; 85027; 87086; 93005; 93010; 97110; 97162; 97166; 97530; 97535; A9270; C1776; J0171; J0360; J0690; J0735; J1100; J1650; J1885; J2250; J2370; J2405; J2704; J2795; J3010; J7030; J7120; P9612; U0004

== ENCOUNTER → 2022-03-10 | Emergency (ER) | payer MEDICARE ==
[~2022-03-10] VITALS: Ht 205.7 cm; Wt 90.7 kg
== END ==
LOC: ER 14:22
DX: S73.004A Unspecified dislocation of right hip, initial encounter (principal); W19.XXXA Unspecified fall, initial encounter; Z88.8 Allergy status to other drugs, medicaments and biological substances; Z79.899 Other long term (current) drug therapy
CPT/HCPCS: 72170; 73502; J1885; J2250; J2704; J3010; J7030

== ENCOUNTER 2022-06-07 12:44 | Emergency (ER) | payer MEDICARE, OTHER ==
[~2022-06-07] VITALS: Ht 167.6 cm; Wt 68.0 kg
[~2022-06-07 12:44] MED LIST changes: +HYDRA50 PO; +LAMO100; +METO100ER PO; +NAPROXEN250 M1 PO; +SENN187; +TRILEPTAL600 M3 PO
[2022-06-07 13:18] LABS: BASOPHILS ABSOLUTE AUTO 0.06 K/mm3 (0.00-0.23); BASOPHILS PERCENT AUTO 1 % (0-2); EOSINOPHILS ABSOLUTE AUTO 0.24 K/mm3 (0.00-0.68); EOSINOPHILS PERCENT AUTO 3 % (0-6); Hematocrit 33.8 % (33.0-51.0); IMMATURE GRAN ABSOLUTE AUTO 0.02 K/mm3 (0.00-0.10); IMMATURE GRAN PERCENT AUTO 0 % (0-1); LYMPHOCYTES ABSOLUTE AUTO 1.34 K/mm3 (0.84-5.20); LYMPHOCYTES PERCENT AUTO 18 % (21-46); MONOCYTES ABSOLUTE AUTO 0.82 K/mm3 (0.16-1.47); MONOCYTES PERCENT AUTO 11 % (4-13); Mean Corpuscular HGB 32.4 pg (26.0-34.0); Mean Corpuscular HGB Conc 35.5 g/dL (31.5-36.5); Mean Corpuscular Volume 91 fL (80-100); NEUTROPHILS ABSOLUTE AUTO 5.12 K/mm3 (1.96-9.15); NEUTROPHILS PERCENT AUTO 67 % (41-73); Platelet Count 325 K/mm3 (150-400); RDW Coefficient Variation 13.9 % (11.7-14.2); RDW Standard Deviation 47.1 fL (35.1-46.3)
[2022-06-07 13:46] LABS: Albumin, Blood 3.4 g/dL (3.4-5.0); Albumin/Globulin Ratio 0.9 (0.8-1.8); Bilirubin, Total 0.5 mg/dL (0.1-1.0); Bun/Creatinine Ratio 26.4 (12.0-20.0); Calcium, Blood 8.9 mg/dL (8.5-10.1); Creatinine, Blood 0.49 mg/dL (0.40-1.00); Globulin, Blood 3.6 g/dL (2.2-4.0); Magnesium, Blood 1.8 mg/dL (1.6-2.4); Potassium, Blood 3.4 mmol/L (3.5-5.5); Prolactin 8.3 ng/mL (2.74-19.64)
== END 2022-06-07 18:53 | disposition home or self-care (01) ==
LOC: ER 12:44
PROVIDERS: Student in an Organized Health Care Education/Training Program
DX: G40.909 Epilepsy, unspecified, not intractable, without status epilepticus (principal); Z87.820 Personal history of traumatic brain injury; I10 Essential (primary) hypertension; F17.200 Nicotine dependence, unspecified, uncomplicated; Z88.8 Allergy status to other drugs, medicaments and biological substances; Z79.899 Other long term (current) drug therapy; Z79.82 Long term (current) use of aspirin
CPT/HCPCS: 70450; 80053; 82947; 83735; 84145; 84146; 85025; 93005; 93010; 99284-25; A9270; J7030

== ENCOUNTER → 2022-07-05 | Outpatient (CLI) | payer MEDICARE, OTHER ==
[~2022-07-05] MED LIST changes: +Acetaminophen325 M1 PO; +CEFD300 PO; +MULVITA PO; -Multivitamin1 EAC1 PO; +Oxcarbazepine300 MG PO; -SENN187; +SENN187 PO; +SPIRONOLACTONE25 MG PO; -TRILEPTAL600 M3 PO
[2022-07-05 18:00] LABS: Hematocrit 34.4 % (33.0-51.0); Mean Corpuscular HGB 31.7 pg (26.0-34.0); Mean Corpuscular HGB Conc 34.9 g/dL (31.5-36.5); Mean Corpuscular Volume 91 fL (80-100); Mean Platelet Volume 8.6 fL (9.1-12.4); Platelet Count 329 K/mm3 (150-400); RDW Coefficient Variation 13.8 % (11.7-14.2); RDW Standard Deviation 46.3 fL (35.1-46.3); Red Blood Cell Count 3.79 M/mm3 (3.80-5.20); White Blood Cell Count 5.09 K/mm3 (4.00-11.30)
[2022-07-05 18:08] LABS: Appearance, Urine Hazy (Clear); Bilirubin, Urine Neg (Neg); Blood, Urine 2+ (Neg); Color, Urine Yellow (P-Yellow); Glucose Qualitative, Urine Neg (Neg); Ketones, Urine Neg (Neg); Leukocyte Esterase, Urine 3+ (Neg); Nitrite, Urine Pos (Neg); Protein, Urine 3+ (Neg); Urobilinogen, Urine NORM (Normal)
[2022-07-05 18:36] LABS: Squamous Epithelial Cells Few /hpf (Few); White Blood Cells, Urine 50-100 /hpf (0-5)
[2022-07-05 18:37] LABS: Bacteria Many /hpf; Calcium Oxalate Crystals Few /hpf
[2022-07-05 19:31] LABS: Bun/Creatinine Ratio 22.1 (12.0-20.0); Calcium, Blood 9.3 mg/dL (8.5-10.1); Creatinine, Blood 0.54 mg/dL (0.40-1.00); Potassium, Blood 3.6 mmol/L (3.5-5.5)
== END | disposition home or self-care (01) ==
LOC: EDSTATUS 15:45 → LAB SHORT 16:18 → LAB UVN 16:18
PROVIDERS: Internal Medicine
DX: N39.0 Urinary tract infection, site not specified (principal)
CPT/HCPCS: 80048; 81001; 85027; 87077; 87086; 87186

== ENCOUNTER 2022-07-16 23:44 | Inpatient (IN) | payer MEDICARE, OTHER ==
[~2022-07-16] VITALS: Ht 165.1 cm; Wt 79.4 kg
[~2022-07-16 23:44] MED LIST changes: -Acetaminophen325 M1 PO; -CEFD300 PO; -SPIRONOLACTONE25 MG PO
[2022-07-17 00:19] LABS: RDW Coefficient Variation 13.8 % (11.7-14.2)
[2022-07-17 00:33] LABS: BASOPHILS ABSOLUTE AUTO 0.09 K/mm3 (0.00-0.23); BASOPHILS PERCENT AUTO 1 % (0-2); EOSINOPHILS PERCENT AUTO 5 % (0-6); Hematocrit 30.9 % (33.0-51.0); Hemoglobin 11.2 g/dL (11.5-16.0); IMMATURE GRAN ABSOLUTE AUTO 0.08 K/mm3 (0.00-0.10); IMMATURE GRAN PERCENT AUTO 1 % (0-1); LYMPHOCYTES PERCENT AUTO 35 % (21-46); MONOCYTES ABSOLUTE AUTO 0.85 K/mm3 (0.16-1.47); MONOCYTES PERCENT AUTO 11 % (4-13); Mean Corpuscular HGB 31.6 pg (26.0-34.0); Mean Corpuscular HGB Conc 36.2 g/dL (31.5-36.5); Mean Corpuscular Volume 87 fL (80-100); NEUTROPHILS ABSOLUTE AUTO 3.57 K/mm3 (1.96-9.15); NEUTROPHILS PERCENT AUTO 46 % (41-73); Red Blood Cell Count 3.54 M/mm3 (3.80-5.20); White Blood Cell Count 7.69 K/mm3 (4.00-11.30)
[2022-07-17 00:35] LABS: Albumin, Blood 3.3 g/dL (3.4-5.0); Bilirubin, Total 0.6 mg/dL (0.1-1.0); Bun/Creatinine Ratio 21.8 (12.0-20.0); Calcium, Blood 8.8 mg/dL (8.5-10.1); Creatinine, Blood 0.5 mg/dL (0.40-1.00); Globulin, Blood 3.3 g/dL (2.2-4.0); Potassium, Blood 3.9 mmol/L (3.5-5.5); Total Protein, Blood 6.6 g/dL (6.4-8.2)
[2022-07-17 00:37] LABS: Source, Urine Straight Cath
[2022-07-17 00:38] LABS: Mean Platelet Volume 8.9 fL (9.1-12.4)
[2022-07-17 00:45] LABS: Appearance, Urine Turbid (Clear); Bilirubin, Urine Neg (Neg); Blood, Urine 3+ (Neg); Color, Urine Yellow (P-Yellow); Glucose Qualitative, Urine Neg (Neg); Ketones, Urine 1+ (Neg); Leukocyte Esterase, Urine 3+ (Neg); Nitrite, Urine Neg (Neg); Protein, Urine 3+ (Neg); Urobilinogen, Urine 1+ (Normal)
[2022-07-17 00:58] LABS: Platelet Count 296 K/mm3 (150-400)
[2022-07-17 01:01] LABS: Red Blood Cells, Urine 0-2 /hpf (0-2); Squamous Epithelial Cells Not Seen /hpf (Few); White Blood Cells, Urine TNTC /hpf (0-5)
[2022-07-17 01:02] LABS: Bacteria Mod /hpf
[2022-07-17] MEDS ORDERED: HYDR1TAB94 PO (01:23)
[2022-07-17] MEDS ORDERED: Acetaminophen325 M1 PO (02:01)
[2022-07-17] MEDS ORDERED: SPIRONOLACTONE25 MG PO (02:06)
[2022-07-17 03:41] LABS: Influenza A, PCR NEGATIVE (NEGATIVE); Influenza B, PCR NEGATIVE (NEGATIVE); Resp Syncytial Virus, PCR NEGATIVE (NEGATIVE); SARS-Cov-2 (COVID-19) PCR, MMC NEGATIVE (NEGATIVE)
--- NOTE | 2022-07-17 03:45 | NUR ---
PT ARRIVED VIA STRETCHER FROM ED, PT SLIDE OVER WITH STAFF ASSIST, PT CONFUSED, IS ANSWERING SOME QUESTIONS, DIFFICULT SPEECH. PULLING AT IV.
--- NOTE | 2022-07-17 06:26 | NUR ---
PT MORE RESPONSIVE THAN WHEN FIRST ARRIVED, STILL CONFUSED MOS OF TIME BUT IS ABLE TO ANSWER AND PARTICIPATE IN CONVERSATION MORE THAN SHE HAD BEEN. IV FLUIDS RUNNING, NO VOID OF YET, STRAIGHT CATH IN ED AT 0030.
--- NOTE | 2022-07-17 16:50 | NUR ---
SHIFT SUMMARY PT PLEASANTLY CONFUSED. ENCOURAGING PO INTAKE WHILE AWAKE. PT DOES LIKE THE ENSURES. HEAVY WETTER AND SKIN TO SACRUM BECOMING RED FROM THE AMOUNT OF URINE SHE IS PRODUCING. PURE WIK IN PLACE TO PROTECT SKIN NOW. TELE RUNNING NSR PER TECH. VS REVIEWED. HOME MEDS RESTARTED TODAY & BP IMPROVED. HYPERTENSIVE THIS AM. NO OTHER ACUTE CHANGES IN ASSESSMENT AT THIS TIME. CALL LIGHT IN REACH. PT RESTING IN BED.
--- NOTE | 2022-07-18 05:53 | NUR ---
PT C/O OF HEAD PAIN DURING NIGHT ASSESSMENT, HYDROCODONE GIVEN, PT STATED HEAD WAS BETTER AFTER. PT SLEPT MOST OF SHIFT. USES CALL LIGHT AT TIMES, CALLS OUT OTHER TIMES. PLEASANTLY CONFUSED.
[2022-07-18 06:12] LABS: Hematocrit 32.7 % (33.0-51.0); Hemoglobin 11.6 g/dL (11.5-16.0); Mean Corpuscular HGB Conc 35.5 g/dL (31.5-36.5); Mean Corpuscular Volume 90 fL (80-100); Mean Platelet Volume 8.2 fL (9.1-12.4); Platelet Count 330 K/mm3 (150-400); RDW Coefficient Variation 13.8 % (11.7-14.2); RDW Standard Deviation 45.4 fL (35.1-46.3); Red Blood Cell Count 3.62 M/mm3 (3.80-5.20); White Blood Cell Count 5.93 K/mm3 (4.00-11.30)
[2022-07-18 06:28] LABS: Albumin, Blood 3.4 g/dL (3.4-5.0); Bilirubin, Total 0.4 mg/dL (0.1-1.0); Bun/Creatinine Ratio 20.3 (12.0-20.0); Calcium, Blood 9.2 mg/dL (8.5-10.1); Creatinine, Blood 0.49 mg/dL (0.40-1.00); Globulin, Blood 3.3 g/dL (2.2-4.0); Potassium, Blood 3.5 mmol/L (3.5-5.5); Total Protein, Blood 6.7 g/dL (6.4-8.2)
--- NOTE | 2022-07-18 18:18 | NUR ---
DAYSHIFT SUMMARY No acute changes to patient status. Patient alert & oriented to self, place. Worked with therapy today, pt unable to bear wt on right leg, stated "she broke her leg". PT recommending lift for transfers. Discontinue telemetry today. Vitals stable. Will continue plan of care.
--- NOTE | 2022-07-19 05:25 | NUR ---
PT PAINFUL IN R HIP, PAIN MEDICATION GIVEN, PT SLEPT WELL AFTER. CALLS AT TIMES FOR NEEDS, OTHER TIMES CALLS OUT FOR HELP. CONTINUES TO BE CONFUSED.
[2022-07-19] MEDS ORDERED: CEFD300 PO (10:59)
[2022-07-19 12:23] LABS: SARS-Cov-2 (COVID-19) PCR, MMC POSITIVE (NEGATIVE)
[2022-07-19 13:20] LABS: SARS-Cov-2 (COVID-19) Antigen Negative (NEGATIVE)
--- NOTE | 2022-07-19 13:58 | NUR ---
SHIFT SUMMARY PT AWAKE DURING SHIFT REPORT, RESTING QUIETLY. NO C/O. PER REPORT, PT IMROVING AND POSSIBLE D/C TO REHAB. DR CARLOS IN TO SEE PT. SOUND ENGINEERING TECHNICIAN WORKING ON D/C TO [facility] TRANSPORT ARRANGED FOR 1300 AND THEN CHANGED TO 1400. PT ASSISTED INTO W/C VIA 2P ASSIST AND GB. REPORT TO BE CALLED.
== END 2022-07-19 14:03 | DRG 689 ==
LOC: ER 23:44 → MEDS 23:45 → ER 07-17 02:18 → MEDS 07-17 03:02
PROVIDERS: Internal Medicine; Student in an Organized Health Care Education/Training Program; ADMIT Internal Medicine
DX: N39.0 Urinary tract infection, site not specified (principal); G92.8 Other toxic encephalopathy; E87.1 Hypo-osmolality and hyponatremia; Z28.21 Immunization not carried out because of patient refusal; I95.9 Hypotension, unspecified; Z20.822 Contact with and (suspected) exposure to COVID-19; G40.909 Epilepsy, unspecified, not intractable, without status epilepticus; I10 Essential (primary) hypertension; E03.9 Hypothyroidism, unspecified; E78.5 Hyperlipidemia, unspecified; Z96.641 Presence of right artificial hip joint; Z87.820 Personal history of traumatic brain injury; Z87.891 Personal history of nicotine dependence; Z88.8 Allergy status to other drugs, medicaments and biological substances; Z79.82 Long term (current) use of aspirin; Z79.899 Other long term (current) drug therapy
CPT/HCPCS: 0241U; 36415; 51701; 70450; 71045; 80053; 81001; 83605; 83880; 85025; 85027; 87040; 87077; 87086; 87186; 87426; 93005; 93010; 96360-59; 96372; 96372-59; 97166; 99285-25; A9270; C9803; G0378; J0696; J1650; J7030; U0004

== ENCOUNTER 2023-01-11 13:06 | Observation (INO) | payer MEDICARE, OTHER ==
[~2023-01-11] VITALS: Ht 167.6 cm; Wt 65.8 kg
[~2023-01-11 13:06] MED LIST changes: +Acetaminophen325 M1 PO; +CEFD300 PO; +SPIRONOLACTONE25 MG PO
[2023-01-11 15:02] LABS: BASOPHILS ABSOLUTE AUTO 0.05 K/mm3 (0.00-0.23); BASOPHILS PERCENT AUTO 1 % (0-2); EOSINOPHILS PERCENT AUTO 4 % (0-6); Hematocrit 31.5 % (33.0-51.0); Hemoglobin 10.6 g/dL (11.5-16.0); IMMATURE GRAN ABSOLUTE AUTO 0.02 K/mm3 (0.00-0.10); IMMATURE GRAN PERCENT AUTO 0 % (0-1); LYMPHOCYTES PERCENT AUTO 35 % (21-46); MONOCYTES ABSOLUTE AUTO 0.84 K/mm3 (0.16-1.47); MONOCYTES PERCENT AUTO 12 % (4-13); Mean Corpuscular HGB 31.7 pg (26.0-34.0); Mean Corpuscular HGB Conc 33.7 g/dL (31.5-36.5); Mean Corpuscular Volume 94 fL (80-100); Mean Platelet Volume 8.6 fL (9.1-12.4); NEUTROPHILS ABSOLUTE AUTO 3.46 K/mm3 (1.96-9.15); NEUTROPHILS PERCENT AUTO 48 % (41-73); Platelet Count 278 K/mm3 (150-400); RDW Standard Deviation 48.3 fL (35.1-46.3); Red Blood Cell Count 3.34 M/mm3 (3.80-5.20); White Blood Cell Count 7.17 K/mm3 (4.00-11.30)
[2023-01-11 15:17] LABS: Bun/Creatinine Ratio 20.3 (12.0-20.0); Calcium, Blood 8.7 mg/dL (8.5-10.1); Creatinine, Blood 0.54 mg/dL (0.40-1.00); Potassium, Blood 3.1 mmol/L (3.5-5.5)
[2023-01-11 15:34] LABS: International Normalized Ratio 1.01; Prothrombin Time Results 10.6 Sec (9.7-11.5)
[2023-01-11 17:10] VITALS: BP 183/91
--- NOTE | 2023-01-11 17:55 | NUR ---
ASSUMED CARE: PT ADMITTED TO ROOM 215. NPO, AWAITING DR AQUINO'S INPUT. IMMOBILIZER TO RIGHT LEG IN PLACE. DENIES PAIN OR CONCERNS AT THIS TIME. CALL LIGHT IN REACH. DENIES NEEDS OR CONCERNS AT THIS TIME. IVF RUNNING PER ORDERS
[2023-01-11 18:06] LABS: Influenza A, PCR NEGATIVE (NEGATIVE); Influenza B, PCR NEGATIVE (NEGATIVE); Resp Syncytial Virus, PCR NEGATIVE (NEGATIVE); SARS-Cov-2 (COVID-19) PCR, MMC NEGATIVE (NEGATIVE)
[2023-01-11] MEDS ORDERED: COREG12.5 M1 PO (18:13)
[2023-01-11 18:14] VITALS: BP 181/87
[2023-01-11] MEDS ORDERED: IRBE150 PO (18:15)
[2023-01-11] MEDS ORDERED: ATOR40TA PO (18:15)
[2023-01-11] MEDS ORDERED: NIFE90ER PO (18:16)
--- NOTE | 2023-01-11 18:48 | NUR ---
PT HYPERTENSIVE. CALL TO DR DSOUZA TO RELAY THIS WELL LET HER KNOW THAT PT'S MED LIST IS DIFFERENT THAN WHAT WAS ORIGINALLY REPORTED. AWAITING NEW MEDS FROM PHARMACY
[2023-01-11 19:36] VITALS: BP 195/94
[2023-01-11 21:50] VITALS: BP 169/88
[2023-01-12 02:26] VITALS: BP 150/82
--- NOTE | 2023-01-12 04:41 | NUR ---
SHIFT SUMMARY; NO ACUTE CHANGES T/O THE NIGHT. THE PT IS AXO X4 AND BEDREST R/T TO THE PTS R LEG BEING IN AN IMMOBILIZER DUE TO A R TIBULAR PLATEAU FX. DR. AQUINO TO EVALAUTE THE FX TODAY. THE PT IS AXO X4. THE PT DENIES ANY PAIN AT REST, HOWEVER, WHEN WE ROLL THE PT IT IS VERY PAINFUL. THE PT DENIES THE NEED FOR ANY PRN PAIN MEDICATIONS AT THIS TIME. THE PT HAS NS RUNNING AT 50MLS/HR. THE PT HAS BEEN INCONTIENT T/O THE NIGHT. THE PT DENIES ANY SOB, CHEST PAIN/PRESSURE OR N/V THIS SHIFT. CURRENTLY THE PT IS SLEEPING IN BED WITH THE BED IN THE LOWEST POSITION AND THE CALL LIGHT AT BEDSIDE. PT HAS REMAINED NPO SINCE 0000 IN ANTICIPATION FOR EVALUATION BY DR. AQUINO. FIRE SAFETY MAINTAINED T/O THE NIGHT. FIRE SAFETY MAINTAINED T/O THE NIGHT.
[2023-01-12 04:43] LABS: BASOPHILS ABSOLUTE AUTO 0.07 K/mm3 (0.00-0.23); BASOPHILS PERCENT AUTO 1 % (0-2); EOSINOPHILS ABSOLUTE AUTO 0.34 K/mm3 (0.00-0.68); EOSINOPHILS PERCENT AUTO 6 % (0-6); Hematocrit 32.5 % (33.0-51.0); IMMATURE GRAN ABSOLUTE AUTO 0.02 K/mm3 (0.00-0.10); IMMATURE GRAN PERCENT AUTO 0 % (0-1); LYMPHOCYTES ABSOLUTE AUTO 2.48 K/mm3 (0.84-5.20); LYMPHOCYTES PERCENT AUTO 41 % (21-46); MONOCYTES ABSOLUTE AUTO 0.67 K/mm3 (0.16-1.47); MONOCYTES PERCENT AUTO 11 % (4-13); Mean Corpuscular HGB 31.7 pg (26.0-34.0); Mean Corpuscular HGB Conc 33.8 g/dL (31.5-36.5); Mean Corpuscular Volume 94 fL (80-100); Mean Platelet Volume 8.7 fL (9.1-12.4); NEUTROPHILS ABSOLUTE AUTO 2.52 K/mm3 (1.96-9.15); NEUTROPHILS PERCENT AUTO 41 % (41-73); NRBC ABSOLUTE 0.02 K/mm3 (0.00-0.02); NRBC Auto 0.3 /100 WBC (0.0-0.2); Platelet Count 285 K/mm3 (150-400); RDW Standard Deviation 47.2 fL (35.1-46.3); Red Blood Cell Count 3.47 M/mm3 (3.80-5.20)
[2023-01-12 05:08] LABS: Bun/Creatinine Ratio 16.5 (12.0-20.0); Calcium, Blood 8.8 mg/dL (8.5-10.1); Creatinine, Blood 0.55 mg/dL (0.40-1.00); Potassium, Blood 3.1 mmol/L (3.5-5.5)
[2023-01-12 07:12] VITALS: BP 161/86
[2023-01-12 07:14] LABS: Phosphorus, Blood 2.7 mg/dL (2.5-4.9)
[2023-01-12 14:57] VITALS: BP 150/83
--- NOTE | 2023-01-12 17:44 | NUR ---
PRESSURE PREVENTION DRESSINGS PLACED ON HEALS, UPPER THIGH BEHIND KNEE IMMOBILIZER AND ON COCCYX. OINTMENT AND FOAM DOT DRESSING PLACED ON R CHEEK WOUND.
[2023-01-12 19:26] LABS: Adenovirus Not Detected (NOT DETECT); Bordetella pertussis Not Detected (NOT DETECT); Chlamydophila pneumoniae Not Detected (NOT DETECT); Coronavirus 229E Not Detected (NOT DETECT); Coronavirus HKU1 Not Detected (NOT DETECT); Coronavirus NL63 Not Detected (NOT DETECT); Coronavirus OC43 Not Detected (NOT DETECT); Human Metapneumovirus Not Detected (NOT DETECT); Human Rhinovirus/Enterovirus Not Detected (NOT DETECT); Influenza A/2009-H1 Not Detected (NOT DETECT); Influenza A/H1 Not Detected (NOT DETECT); Influenza A/H3 Not Detected (NOT DETECT); Influenza B Not Detected (NOT DETECT); Mycoplasma pneumoniae Not Detected (NOT DETECT); Parainfluenza Virus 1 Not Detected (NOT DETECT); Parainfluenza Virus 2 Not Detected (NOT DETECT); Parainfluenza Virus 3 Not Detected (NOT DETECT); Parainfluenza Virus 4 Not Detected (NOT DETECT); Respiratory Syncytial Virus Not Detected (NOT DETECT); SARS-Cov-2 (COVID-19), BioFire Not Detected (NOT DETECT)
--- NOTE | 2023-01-12 19:43 | NUR ---
SHIFT SUMMARY PT IS NON-SURGICAL AT THIS TIME. RLE IN KNEE IMMOBILIZER. PAIN MANAGED WITH TYLENOL. PLAN FOR EVAL BY PT TOMORROW. WILL MONITOR UNTIL REPORT TO LISY HORN.
[2023-01-12 19:47] VITALS: BP 141/84
--- NOTE | 2023-01-13 02:35 | NUR ---
DURING BED LINEN CHANGE A WHITE PILL WAS NOTED ON PT CHEST TWO HOURS AFTER ADMINISTRATION OF 2100 MEDS. PHARMACY CONTACTED TO IDENTIFY PILL, PHARMACY STATES POSSIBLY CARVEDILOL. PILL WAS DISCARDED, DUE TO UNCERTAINTY OF WHAT PILL IT WAS. PHARMACY STATES OK TO DISCARD. PT MAY HAVE ONLY RECEIVED HALF THE DOSE OF CARVEDILOL. DR. AGUILAR NOTIFIED, AND STATES "THAT IS FINE" NO ADDITIONAL ORDERS GIVEN. ASSEMBLY MACHINE TOOL SETTER ALSO NOTIFIED.
--- NOTE | 2023-01-13 02:55 | NUR ---
SHIFT SUMMARY PT HAS RESTED T/O THE NIGHT, SHE DOES NOT REPORT PAIN. RIGHT LEG REMAINS IN IMMOBILIZER, PT DENIES N/T. VITALS ARE STABLE. PT A/OX4 AND ABLE TO MAKE NEEDS KNOWN. PLAN OF CARE REMAINS UNCHANGED.
[2023-01-13 03:03] VITALS: BP 143/83
[2023-01-13 04:14] LABS: BASOPHILS ABSOLUTE AUTO 0.04 K/mm3 (0.00-0.23); BASOPHILS PERCENT AUTO 1 % (0-2); EOSINOPHILS ABSOLUTE AUTO 0.25 K/mm3 (0.00-0.68); EOSINOPHILS PERCENT AUTO 4 % (0-6); Hematocrit 31.8 % (33.0-51.0); Hemoglobin 10.7 g/dL (11.5-16.0); IMMATURE GRAN ABSOLUTE AUTO 0.01 K/mm3 (0.00-0.10); IMMATURE GRAN PERCENT AUTO 0 % (0-1); LYMPHOCYTES ABSOLUTE AUTO 1.84 K/mm3 (0.84-5.20); LYMPHOCYTES PERCENT AUTO 31 % (21-46); MONOCYTES ABSOLUTE AUTO 0.51 K/mm3 (0.16-1.47); MONOCYTES PERCENT AUTO 9 % (4-13); Mean Corpuscular HGB 31.3 pg (26.0-34.0); Mean Corpuscular HGB Conc 33.6 g/dL (31.5-36.5); Mean Corpuscular Volume 93 fL (80-100); Mean Platelet Volume 8.6 fL (9.1-12.4); NEUTROPHILS ABSOLUTE AUTO 3.33 K/mm3 (1.96-9.15); NEUTROPHILS PERCENT AUTO 56 % (41-73); Platelet Count 286 K/mm3 (150-400); RDW Coefficient Variation 13.6 % (11.7-14.2); RDW Standard Deviation 46.3 fL (35.1-46.3); Red Blood Cell Count 3.42 M/mm3 (3.80-5.20); White Blood Cell Count 5.98 K/mm3 (4.00-11.30)
[2023-01-13 04:34] LABS: Anion Gap 5 mmol/L (6-16); Blood Urea Nitrogen 14 mg/dL (8-24); Bun/Creatinine Ratio 23.1 (12.0-20.0); CO2, Blood 27 mmol/L (21-32); Chloride, Blood 105 mmol/L (98-108); Creatinine, Blood 0.61 mg/dL (0.40-1.00); Glomerular Filtration Rate 96 (60-); Glucose, Blood 122 mg/dL (70-99); Phosphorus, Blood 3.2 mg/dL (2.5-4.9); Potassium, Blood 3.4 mmol/L (3.5-5.5); Sodium, Blood 137 mmol/L (136-145)
[2023-01-13 07:24] VITALS: BP 168/88
[2023-01-13 15:28] VITALS: BP 151/81
--- NOTE | 2023-01-13 17:50 | NUR ---
SHIFT SUMMARY PT IS POD#2 FROM R HIP PINNING WITH DR. AQUINO. PAIN MANAGED WITH OXYCODONE, BUT ATTEMTPING MINIMAL USE. PT HAS BEEN ASSISTED WITH REPOSITIONING. PT HAS BEEN DROWSY T/O THE DAY. PT CONTINUING TO HAVE URINARY RETENTION, PANG CATH PLACED. PT RESTING IN BED WITH CALL LIGHT WITHIN REACH.
--- NOTE | 2023-01-13 18:01 | NUR ---
SHIFT SUMMARY PT HAD PHYSICAL THERAPY TODAY AND WAS ABLE TO GET TO THE CHAIR USING A SLIDE BOARD. PT WAS ASSISTED BACK TO BED WITH A LIFT. PAIN MANAGEMENT HAS BEEN A CONCERN WITH MOVEMENT; [facility] DID NOT PROVIDE ADEQUATE PAIN RELIEF DURING THERAPY, CHANGED TO OXYCODONE. OXYCODONE APPEARS TO WORK WELL FOR PAIN ALTHOUGH PT STILL HAS PAIN WITH MOVEMENT. SNF RECOMMENDED ALTHOUGH PT IS HESITANT TO GO TO SNF. CALL LIGHT WITHIN REACH.
[2023-01-13 19:22] VITALS: BP 174/85
[2023-01-14 03:44] VITALS: BP 159/79
--- NOTE | 2023-01-14 04:13 | NUR ---
SHIFT SUMMARY PT A&O X3, FORGETFUL OF DATE. PT REPORTS PAIN WITH MOVEMENT OF RLE. PT MEDICATED PER EMAR. PT SLEEPING ALL NIGHT. TURNED Q2. KNEE IMMOBLIZER IN PLACE. PUREWICK IN PLACE DRAINING YELLOW URINE. TOLERTING PO INTAKE. VSS. NO OTHER CONCERNS AT THIS TIME. CALL LIGHT WITHIN REACH.
[2023-01-14 07:22] VITALS: BP 176/85
[2023-01-14 07:24] VITALS: BP 159/80
[2023-01-14 14:53] LABS: Bun/Creatinine Ratio 18.1 (12.0-20.0); Calcium, Blood 9.2 mg/dL (8.5-10.1); Creatinine, Blood 0.61 mg/dL (0.40-1.00); Potassium, Blood 3.6 mmol/L (3.5-5.5)
[2023-01-14 15:32] VITALS: BP 143/86
[2023-01-14 20:13] VITALS: BP 148/83
[2023-01-15 04:29] VITALS: BP 138/81
--- NOTE | 2023-01-15 07:11 | NUR ---
SHIFT SUMMARY NO ACUTE CHANGES NOTED THROUGH THE NIGHT, PT CHOSE TO SLEEP IN HER CHAIR, ASSISTED W/REPOSITIONING PRN, LEG BRACE INTACT, REPORTS PAIN W/MOVEMENT BBUT STATES SHE IS COMFORTABLE AT REST, TOLERATING PO INTAKE, PUREWICK IN PLACE, CLEAR YELLOW URINE NOTED, PT DID SHOW SOME CONFUSION UPON WAKING UP, REORIENTED QUICKLY ONCE THE LIGHT WAS TURNED ON. REPORT GIVEN TO DAY RN, PT RESTING QUIETLY, CALL LIGHT IN REACH
[2023-01-15 07:45] VITALS: BP 167/89
[2023-01-15 15:40] VITALS: BP 131/89
--- NOTE | 2023-01-15 19:23 | NUR ---
SHIFT SUMMARY S/P R TIB/FIB FX, A/O BUT FORGETFUL, TOLERABING PO, PAIN MANAGED, SHE IS A 2 MAX ASSIST TO STAND PIVOT, SHE TRIALED USING A WALKER BUT WAS UNABLE TO STAND ON HER OWN AND WAS UNABLE TO HOLD HERSELF UP USING HER ARMS AND LEFT LEG ONCE STAFF HELPED HER UP. ALL HER HOME SUPPLIES HAVE BEEN DELIVERED TODAY AND SHE IS READY ONCE CLEARED BY ATTENDING MD. NO ACUTE EVENTS THIS SHIFT, CALL LIGHT IN REACH.
[2023-01-15 19:32] VITALS: BP 151/81
[2023-01-16 03:41] VITALS: BP 157/81
--- NOTE | 2023-01-16 03:43 | NUR ---
SHIFT SUMMARY NO ACUTE CHANGES TO REPORT OVERNIGHT, PT HAS RESTED T/O THE SHIFT. RIGHT LEG IN IMMOBILIZER, SHE DENIES N/T. DOES NOT COMPLAIN OF PAIN. VITALS ARE STABLE. PLAN IS FOR [facility] TODAY. PLAN OF CARE REMAINS UNCHANGED, BED IN LOWEST POSITION, CALL LIGHT WITHIN REACH.
[2023-01-16 08:00] VITALS: BP 160/84
--- NOTE | 2023-01-16 10:41 | NUR ---
PT REFUSED TO SIT IN RECLINER WANTED TO SIT IN WALKER BUT NOT RECLINER. RESTING IN BED AT THIS TIME.
[2023-01-16] MEDS ORDERED: OXYC5 PO (10:55)
[2023-01-16] MEDS ORDERED: ASPI325 PO (11:06)
--- NOTE | 2023-01-16 12:23 | NUR ---
DISCHARGED REVIEWED DC INSTRUCTIONS W/PT, PT VERBALIZED UNDERSTANDING OF DC INSTRUCTIONS. DC'D IV, CATHETER INTACT. PT LEFT UNIT IN WC TRANSPORT WITH POSSESSIONS AND DC PAPERWORK IN HAND, PT'S WALKER ALSO SENT WITH PT.
== END 2023-01-16 12:14 | disposition home health service (06) ==
LOC: ER 13:06 → SURS 16:24 → ER 17:04 → SURS 18:11
PROVIDERS: Student in an Organized Health Care Education/Training Program; ADMIT Internal Medicine
DX: S82.131A Displaced fracture of medial condyle of right tibia, initial encounter for closed fracture (principal); S82.141A Displaced bicondylar fracture of right tibia, initial encounter for closed fracture; S82.401A Unspecified fracture of shaft of right fibula, initial encounter for closed fracture; W18.30XA Fall on same level, unspecified, initial encounter; E87.6 Hypokalemia; D64.9 Anemia, unspecified; I10 Essential (primary) hypertension; G40.909 Epilepsy, unspecified, not intractable, without status epilepticus; E03.9 Hypothyroidism, unspecified; E78.5 Hyperlipidemia, unspecified; Z20.822 Contact with and (suspected) exposure to COVID-19; E53.8 Deficiency of other specified B group vitamins
CPT/HCPCS: 0202U; 0241U; 29505; 36415; 71045; 73562-RT; 73590; 73700; 80048; 80069; 83735; 84100; 85025; 85610; 85730; 94640; 94664; 94760; 96372; 96374-59; 97110; 97162; 97166; 97530; 99285-25; A9270; G0378; J1170; J1650; J7030

== ENCOUNTER 2023-02-19 15:29 | Emergency (ER) | payer MEDICARE, OTHER ==
[~2023-02-19] VITALS: Ht 167.6 cm; Wt 71.7 kg
[~2023-02-19 15:29] MED LIST changes: +ATOR40TA PO; +COREG12.5 M1 PO; +IRBE150 PO; +NIFE90ER PO; +OXYC5 PO
[2023-02-19 17:20] LABS: BASOPHILS ABSOLUTE AUTO 0.09 K/mm3 (0.00-0.23); BASOPHILS PERCENT AUTO 1 % (0-2); EOSINOPHILS ABSOLUTE AUTO 0.56 K/mm3 (0.00-0.68); EOSINOPHILS PERCENT AUTO 8 % (0-6); Hematocrit 38.5 % (33.0-51.0); IMMATURE GRAN ABSOLUTE AUTO 0.01 K/mm3 (0.00-0.10); IMMATURE GRAN PERCENT AUTO 0 % (0-1); LYMPHOCYTES ABSOLUTE AUTO 3.22 K/mm3 (0.84-5.20); LYMPHOCYTES PERCENT AUTO 45 % (21-46); MONOCYTES ABSOLUTE AUTO 0.69 K/mm3 (0.16-1.47); MONOCYTES PERCENT AUTO 10 % (4-13); Mean Corpuscular HGB 31.9 pg (26.0-34.0); Mean Corpuscular HGB Conc 33.8 g/dL (31.5-36.5); Mean Corpuscular Volume 94 fL (80-100); Mean Platelet Volume 8.5 fL (9.1-12.4); NEUTROPHILS ABSOLUTE AUTO 2.67 K/mm3 (1.96-9.15); NEUTROPHILS PERCENT AUTO 37 % (41-73); Platelet Count 368 K/mm3 (150-400); RDW Coefficient Variation 13.1 % (11.7-14.2); RDW Standard Deviation 45.6 fL (35.1-46.3); Red Blood Cell Count 4.08 M/mm3 (3.80-5.20); White Blood Cell Count 7.24 K/mm3 (4.00-11.30)
[2023-02-19 17:46] LABS: Albumin, Blood 3.6 g/dL (3.4-5.0); Albumin/Globulin Ratio 0.8 (0.8-1.8); Bilirubin, Total 0.3 mg/dL (0.1-1.0); Bun/Creatinine Ratio 17.4 (12.0-20.0); Calcium, Blood 10.2 mg/dL (8.5-10.1); Creatinine, Blood 0.63 mg/dL (0.40-1.00); Globulin, Blood 4.3 g/dL (2.2-4.0); Potassium, Blood 3.8 mmol/L (3.5-5.5); Total Protein, Blood 7.9 g/dL (6.4-8.2)
[2023-02-19 18:44] LABS: Source, Urine Voided
[2023-02-19 18:55] LABS: Appearance, Urine Cloudy (Clear); Bilirubin, Urine Neg (Neg); Blood, Urine 2+ (Neg); Color, Urine Yellow (P-Yellow); Glucose Qualitative, Urine Neg (Neg); Ketones, Urine Neg (Neg); Leukocyte Esterase, Urine 3+ (Neg); Nitrite, Urine Pos (Neg); Protein, Urine 2+ (Neg); Specific Gravity, Urine 1.025 (1.003-1.022); Urobilinogen, Urine NORM (Normal)
[2023-02-19 19:11] LABS: U Amphetamine Screen Not Detected; U Barbituate Screen Not Detected; U Benzodiazapine Screen DETECTED; U Buprenorphine Screen Not Detected; U Cannabinoids Screen Not Detected; U Cocaine Screen Not Detected; U Methadone Screen Not Detected; U Methamphetamine Screen Not Detected; U Opiates Screen Not Detected; U Oxycodone Screen Not Detected; U Phencyclidine Screen Not Detected; U Propoxyphene Screen Not Detected
[2023-02-19 19:14] LABS: Amorphous Heavy (0-Heavy); Bacteria Many /hpf; Calcium Oxalate Crystals Rare /hpf; Mucus Light (0-Heavy); Red Blood Cells, Urine 0-2 /hpf (0-2); Squamous Epithelial Cells Mod /hpf (Few); White Blood Cells, Urine TNTC /hpf (0-5)
[2023-02-19 19:26] LABS: Base Excess Venous -0.5 mmol/L; Bicarbonate Venous 23.7 mmol/L (24.0-30.0); PCO2 Venous 40.9 mmHg (38-42); pH Blood Venous 7.39 (7.34-7.37)
[2023-02-19] MEDS ORDERED: CEFU500T30 PO (20:28)
[2023-02-20 01:15] VITALS: BP 180/107
== END 2023-02-20 01:50 | disposition home or self-care (01) ==
LOC: ER 15:29
PROVIDERS: Emergency Medicine; Student in an Organized Health Care Education/Training Program
DX: R44.1 Visual hallucinations (principal); N39.0 Urinary tract infection, site not specified; T42.4X5A Adverse effect of benzodiazepines, initial encounter; I10 Essential (primary) hypertension; E78.5 Hyperlipidemia, unspecified; E03.9 Hypothyroidism, unspecified; G40.909 Epilepsy, unspecified, not intractable, without status epilepticus; Z87.820 Personal history of traumatic brain injury; Z88.8 Allergy status to other drugs, medicaments and biological substances; Z79.899 Other long term (current) drug therapy; Z79.82 Long term (current) use of aspirin
CPT/HCPCS: 51701; 70450; 80053; 81001; 82803; 84443; 85025; 87086; 96365; 99285-25; J0696

== ENCOUNTER → 2023-02-27 | Outpatient (CLI) | payer MEDICARE, OTHER ==
[~2023-02-27] MED LIST changes: +CEFU500T30 PO
[2023-02-27 17:24] LABS: BASOPHILS PERCENT AUTO 1 % (0-2); EOSINOPHILS PERCENT AUTO 5 % (0-6); Hematocrit 42.3 % (33.0-51.0); Hemoglobin 13.8 g/dL (11.5-16.0); IMMATURE GRAN ABSOLUTE AUTO 0.01 K/mm3 (0.00-0.10); IMMATURE GRAN PERCENT AUTO 0 % (0-1); LYMPHOCYTES PERCENT AUTO 40 % (21-46); MONOCYTES ABSOLUTE AUTO 0.51 K/mm3 (0.16-1.47); MONOCYTES PERCENT AUTO 7 % (4-13); Mean Corpuscular HGB 32.1 pg (26.0-34.0); Mean Corpuscular HGB Conc 32.6 g/dL (31.5-36.5); Mean Corpuscular Volume 98 fL (80-100); Mean Platelet Volume 9.1 fL (9.1-12.4); NEUTROPHILS ABSOLUTE AUTO 3.42 K/mm3 (1.96-9.15); NEUTROPHILS PERCENT AUTO 46 % (41-73); Platelet Count 434 K/mm3 (150-400); RDW Coefficient Variation 13.1 % (11.7-14.2); White Blood Cell Count 7.44 K/mm3 (4.00-11.30)
[2023-02-27 18:54] LABS: Albumin/Globulin Ratio 0.9 (0.8-1.8); Bilirubin, Total 0.4 mg/dL (0.1-1.0); Bun/Creatinine Ratio 15.9 (12.0-20.0); Calcium, Blood 10.2 mg/dL (8.5-10.1); Creatinine, Blood 0.63 mg/dL (0.40-1.00); Globulin, Blood 4.3 g/dL (2.2-4.0); Potassium, Blood 3.9 mmol/L (3.5-5.5); Thyroid Stimulating Hormone 1.85 uIU/mL (0.360-4.800); Total Protein, Blood 8.3 g/dL (6.4-8.2)
== END ==
LOC: LAB 10:17 → LAB SHORT 10:17
PROVIDERS: Nurse Practitioner Family
DX: I10 Essential (primary) hypertension (principal)
CPT/HCPCS: 80053; 84443; 85025

== ENCOUNTER 2023-11-07 09:55 | Day surgery (SDC) | payer MEDICARE, OTHER ==
[~2023-11-07] VITALS: Ht 167.6 cm; Wt 68.0 kg
[~2023-11-07 09:55] MED LIST changes: +Balanced Salt Epinephrine Irrigation Solution 500 mL IR SCH; +CEPH500 PO; +Lidocaine HCl/Pf 1% 5 ML VIAL ONE; +Lidocaine HCl/Pf 1% 5 ML VIAL XX SCH; +Moxifloxacin HCL 0.5 MG/0.1 ML 0.4MLSYR RIGHTEYE SCH; +NS 500 ML IV ONE; +PHENYLEPHRINE\\TROPICAMIDE\\TETRACAINE OPHTHALMIC DILATING SOLN RIGHTEYE PRN; +Povidone-Iodine 450 DROP/30 ML Solution RIGHTEYE SCH; +Triamcinolone Inj Susp 40 MG / ML 1ML Vial INJ SCH; +Triamcinolone Inj Susp 40 MG / ML 1ML Vial ONE
[2023-11-07] MEDS ORDERED: FentaNYL Citrate 50 MCG/ML 2 ML Injection ONE (09:57)
[2023-11-07] MEDS ORDERED: Midazolam HCl 1MG / ML 2ML Vial ONE (09:57)
[2023-11-07] MEDS ORDERED: NS 500 ML IV ONE (10:09)
[2023-11-07] MEDS ORDERED: ASPI81CH PO (10:16)
[2023-11-07] MEDS ORDERED: Tetracaine HCl 0.5% Opth Soln 15 ml RIGHTEYE ONE (11:21)
[2023-11-07 11:41] VITALS: BP 144/75
--- NOTE | 2023-11-07 12:39 | NUR ---
11/07/23 1239 Aman Norwood LATE ENTRY: PT TRANSFERED TO PERSONAL WHEELCHAIR INSTEAD OF RECLINER TO DECREASE RISK OF FALLING. PT STATED HER RIGHT LEG WAS "A LEG THEY CALL IT" PT STATED WAS "ABLE TO STAND ON LEFT LEG." THIS RN AND PIYUSH Cruz MA BOTH ASSISTED PT WITH A GAITBELT TO TRANSFER FROM BED TO WHEELCHAIR WITH MODERATE ASSIST. DURING TRANSFER, PT GRUNTED AND WAS GUIDED BACK TO THE EDGE OF THE BED. PT STATED SHE "HURT" HER LEFT ANKLE. THIS RN AND ELI WERE ABLE TO SAFELY TRANSFER PT FROM BED TO WHEELCHAIR WITH GAIT BELT WITH MAXIMUM ASSISTANCE. PT STATED HER LEFT LEG WAS HER "GOOD LEG" AND C/O 4/10 PAIN IN LEFT ANKLE. BROUGHT TO CHAIR SIDE FOR DISCHARGE INSTRUCTIONS. ALL QUESTIONS ENCOURAGED AND ANSWERED BEFORE DISCHARGE. VSS AND PT READY FOR DISCHARGE. THIS RN ASKED IF THEY HAVE ANY HELP OR A GAITBELT AT HOME FOR SAFE TRANSFERING. PT STATED "WE DON'T HAVE HELP, JUST ME. WE HAVE EVERYTHING, A GAITBELT, TRANSFER BOARD. ALL THE THINGS. BUT THEY DON'T HELP AND I DON'T USE THEM. SHE DOES JUST FINE WITHOUT IT." WAS INFORMED THAT PT FELT LIKE SHE HURT HER ANKLE DURING TRANSFER AND ENCOURAGED TO USE TRANSFER TOOLS IF NEEDED AT HOME. PT TAKEN TO CAR IN PERSONAL WHEELCHAIR. RN ASKED HOW TYPICALLY TRANSFERS PT INTO CAR. MAXIMUM ASSISTED PT FROM WHEELCHAIR TO CAR BY TAKING OFF FOOT AND ARM RESTS. PT WAS MINIMUAL ASSISTANCE AND RN WAS STANDBY ASSIST. PT TRANSFERED WITH NO ISSUES AND ABLE TO SAFELY TRANSFER TO CAR.
== END 2023-11-07 12:15 | disposition home or self-care (01) ==
LOC: ORSCSDS 09:55
PROVIDERS: Ophthalmology
PROC: 08RJ3JZ Replacement of Right Lens with Synthetic Substitute, Percutaneous Approach (ICD-10-PCS; principal; 2023-11-07 11:30)
DX: H25.811 Combined forms of age-related cataract, right eye (principal); H54.62 Unqualified visual loss, left eye, normal vision right eye; I10 Essential (primary) hypertension; E78.5 Hyperlipidemia, unspecified; E03.9 Hypothyroidism, unspecified; F03.90 Unspecified dementia, unspecified severity, without behavioral disturbance, psychotic disturbance, mood disturbance, and anxiety; I25.10 Atherosclerotic heart disease of native coronary artery without angina pectoris; Z79.82 Long term (current) use of aspirin; Z79.899 Other long term (current) drug therapy
CPT/HCPCS: J2001; J2250; J3010; J3301; J7040; V2632

== ENCOUNTER 2023-11-14 11:46 | Day surgery (SDC) | payer MEDICARE, OTHER ==
[~2023-11-14] VITALS: Ht 167.6 cm; Wt 68.0 kg
[~2023-11-14 11:46] MED LIST changes: +ASPI81CH PO; -Lidocaine HCl/Pf 1% 5 ML VIAL ONE; +Moxifloxacin HCL 0.5 MG/0.1 ML 0.4MLSYR LEFTEYE SCH; -Moxifloxacin HCL 0.5 MG/0.1 ML 0.4MLSYR RIGHTEYE SCH; +PHENYLEPHRINE\\TROPICAMIDE\\TETRACAINE OPHTHALMIC DILATING SOLN LEFTEYE PRN; -PHENYLEPHRINE\\TROPICAMIDE\\TETRACAINE OPHTHALMIC DILATING SOLN RIGHTEYE PRN; +Povidone-Iodine 450 DROP/30 ML Solution LEFTEYE SCH; -Povidone-Iodine 450 DROP/30 ML Solution RIGHTEYE SCH
--- NOTE | 2023-11-14 12:44 | NUR ---
11/14/23 1244 Priti Hilario AT 1233 PLEDGET AT 1235
[2023-11-14] MEDS ORDERED: NS 500 ML IV ONE (12:51)
[2023-11-14] MEDS ORDERED: Midazolam HCl 1MG / ML 2ML Vial ONE (13:04)
[2023-11-14] MEDS ORDERED: propofoL 20 ML IV ONE (13:25)
[2023-11-14 15:48] VITALS: BP 141/82
== END 2023-11-14 14:05 | disposition home or self-care (01) ==
LOC: ORSCSDS 11:46
PROVIDERS: Ophthalmology
PROC: 08RK3JZ Replacement of Left Lens with Synthetic Substitute, Percutaneous Approach (ICD-10-PCS; principal; 2023-11-14 13:00)
DX: H25.812 Combined forms of age-related cataract, left eye (principal); Z96.1 Presence of intraocular lens; I10 Essential (primary) hypertension; I25.10 Atherosclerotic heart disease of native coronary artery without angina pectoris; R56.9 Unspecified convulsions; E78.5 Hyperlipidemia, unspecified; E03.9 Hypothyroidism, unspecified; Z79.82 Long term (current) use of aspirin; Z79.899 Other long term (current) drug therapy
CPT/HCPCS: J2250; J2704; J3301; J7040; V2632

== ENCOUNTER 2024-02-05 10:56 | Inpatient (IN) | payer MEDICARE, OTHER ==
[~2024-02-05] VITALS: Ht 172.7 cm; Wt 69.4 kg
[2024-02-05] VITALS (13 sets, daily range): BP systolic 91–135; BP diastolic 52–83
[~2024-02-05 10:56] MED LIST changes: -Balanced Salt Epinephrine Irrigation Solution 500 mL IR SCH; -Lidocaine HCl/Pf 1% 5 ML VIAL XX SCH; -Moxifloxacin HCL 0.5 MG/0.1 ML 0.4MLSYR LEFTEYE SCH; -NS 500 ML IV ONE; -PHENYLEPHRINE\\TROPICAMIDE\\TETRACAINE OPHTHALMIC DILATING SOLN LEFTEYE PRN; -Povidone-Iodine 450 DROP/30 ML Solution LEFTEYE SCH; -Triamcinolone Inj Susp 40 MG / ML 1ML Vial INJ SCH; -Triamcinolone Inj Susp 40 MG / ML 1ML Vial ONE
[2024-02-05] MEDS ORDERED: Azithromycin 500 MG in NS 250 ML IV ONE (11:30)
[2024-02-05] MEDS ORDERED: CefTRIAXone Sodium 1,000 MG in NS 100 ML IV ONE (11:30)
[2024-02-05 11:44] LABS: BASOPHILS ABSOLUTE AUTO 0.02 K/mm3 (0.00-0.23); BASOPHILS PERCENT AUTO 0 % (0-2); EOSINOPHILS PERCENT AUTO 0 % (0-6); Hematocrit 32.9 % (33.0-51.0); Hemoglobin 11.3 g/dL (11.5-16.0); IMMATURE GRAN ABSOLUTE AUTO 0.05 K/mm3 (0.00-0.10); IMMATURE GRAN PERCENT AUTO 0 % (0-1); LYMPHOCYTES ABSOLUTE AUTO 0.98 K/mm3 (0.84-5.20); LYMPHOCYTES PERCENT AUTO 7 % (21-46); MONOCYTES ABSOLUTE AUTO 0.55 K/mm3 (0.16-1.47); MONOCYTES PERCENT AUTO 4 % (4-13); Mean Corpuscular HGB 32.1 pg (26.0-34.0); Mean Corpuscular HGB Conc 34.3 g/dL (31.5-36.5); Mean Corpuscular Volume 94 fL (80-100); Mean Platelet Volume 8.6 fL (9.1-12.4); NEUTROPHILS ABSOLUTE AUTO 12.81 K/mm3 (1.96-9.15); NEUTROPHILS PERCENT AUTO 89 % (41-73); Platelet Count 298 K/mm3 (150-400); RDW Coefficient Variation 13.3 % (11.7-14.2); RDW Standard Deviation 45.1 fL (35.1-46.3); Red Blood Cell Count 3.52 M/mm3 (3.80-5.20); White Blood Cell Count 14.41 K/mm3 (4.00-11.30)
[2024-02-05 12:08] LABS: Albumin/Globulin Ratio 0.8 (0.8-1.8); Bilirubin, Total 0.6 mg/dL (0.1-1.0); Calcium, Blood 8.8 mg/dL (8.5-10.1); Creatinine, Blood 0.55 mg/dL (0.40-1.00); Potassium, Blood 3.5 mmol/L (3.5-5.5)
[2024-02-05 12:50] LABS: Source, Urine Foley catheter
[2024-02-05 12:55] LABS: Influenza A, PCR NEGATIVE (NEGATIVE); Influenza B, PCR NEGATIVE (NEGATIVE); Resp Syncytial Virus, PCR NEGATIVE (NEGATIVE); SARS-Cov-2 (COVID-19) PCR, MMC NEGATIVE (NEGATIVE)
[2024-02-05] MEDS ORDERED: Midazolam HCl 1MG / ML 2ML Vial ONE (13:09)
[2024-02-05 13:25] LABS: Appearance, Urine Hazy (Clear); Bilirubin, Urine Neg (Neg); Blood, Urine 4+ (Neg); Color, Urine Amber (P-Yellow); Glucose Qualitative, Urine Neg (Neg); Ketones, Urine Neg (Neg); Leukocyte Esterase, Urine 2+ (Neg); Nitrite, Urine Pos (Neg); Protein, Urine 3+ (Neg); Urobilinogen, Urine NORM (Normal)
[2024-02-05] MEDS ORDERED: levETIRAcetam 1,500 MG in NS 100 ML IV ONE (13:25)
[2024-02-05 14:22] LABS: Bacteria Many /hpf; Mucus Light (0-Heavy); Red Blood Cells, Urine 0-2 /hpf (0-2); Squamous Epithelial Cells Rare /hpf (Few); White Blood Cells, Urine 25-50 /hpf (0-5)
[2024-02-05] MEDS ORDERED: Acetaminophen 325 MG TABLET PO PRN (14:40)
[2024-02-05] MEDS ORDERED: FLU VACC TS2024-25(6MOS UP)/PF 45 MCG/0.5 ML SYRINGE IM SCH (14:45)
[2024-02-05 14:48] LABS: Base Excess Venous 0.3 mmol/L; Bicarbonate Venous 24.5 mmol/L (24.0-30.0); PCO2 Venous 43.6 mmHg (38-42); pH Blood Venous 7.38 (7.34-7.37)
[2024-02-05] MEDS ORDERED: Lactated Ringer's 1,000 ML IV SCH (16:35)
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
[2024-02-05] MEDS ORDERED: levETIRAcetam 750 MG in NS 100 ML IV SCH (21:00)
[2024-02-05] MEDS ORDERED: Famotidine 10 MG/ML 2ML Vial IV SCH (21:00)
[2024-02-05] MEDS ORDERED: Lactobacil 2-S.Thermo-Bifido 1 1 Cap PO SCH (21:00)
[2024-02-05] MEDS ORDERED: LevETIRAcetam 500 MG Tab PO SCH (21:00)
[2024-02-05 21:23] LABS: U Amphetamine Screen Not Detected; U Barbituate Screen Not Detected; U Benzodiazapine Screen Not Detected; U Buprenorphine Screen Not Detected; U Cannabinoids Screen DETECTED; U Cocaine Screen Not Detected; U Methadone Screen Not Detected; U Methamphetamine Screen Not Detected; U Opiates Screen Not Detected; U Oxycodone Screen Not Detected; U Phencyclidine Screen Not Detected
[2024-02-05 22:08] LABS: Bun/Creatinine Ratio 24.9 (12.0-20.0); Calcium, Blood 9.2 mg/dL (8.5-10.1); Creatinine, Blood 0.52 mg/dL (0.40-1.00); Magnesium, Blood 1.9 mg/dL (1.6-2.4); Phosphorus, Blood 2.3 mg/dL (2.5-4.9); Potassium, Blood 3.5 mmol/L (3.5-5.5)
[2024-02-05] MEDS ORDERED: Potassium Phosphate Dibasic 30 MM in Dextrose 5% 500 ML IV ONE (22:35)
[2024-02-06] VITALS (20 sets, daily range): BP systolic 99–176; BP diastolic 42–119
[2024-02-06 03:24] LABS: BASOPHILS ABSOLUTE AUTO 0.02 K/mm3 (0.00-0.23); BASOPHILS PERCENT AUTO 0 % (0-2); EOSINOPHILS ABSOLUTE AUTO 0.02 K/mm3 (0.00-0.68); EOSINOPHILS PERCENT AUTO 0 % (0-6); Hematocrit 30.3 % (33.0-51.0); Hemoglobin 10.3 g/dL (11.5-16.0); IMMATURE GRAN ABSOLUTE AUTO 0.03 K/mm3 (0.00-0.10); IMMATURE GRAN PERCENT AUTO 0 % (0-1); LYMPHOCYTES ABSOLUTE AUTO 1.85 K/mm3 (0.84-5.20); LYMPHOCYTES PERCENT AUTO 18 % (21-46); MONOCYTES ABSOLUTE AUTO 0.75 K/mm3 (0.16-1.47); MONOCYTES PERCENT AUTO 7 % (4-13); Mean Corpuscular HGB 32.3 pg (26.0-34.0); Mean Corpuscular Volume 95 fL (80-100); Mean Platelet Volume 8.6 fL (9.1-12.4); NEUTROPHILS ABSOLUTE AUTO 7.82 K/mm3 (1.96-9.15); NEUTROPHILS PERCENT AUTO 75 % (41-73); Platelet Count 260 K/mm3 (150-400); RDW Coefficient Variation 13.3 % (11.7-14.2); RDW Standard Deviation 46.2 fL (35.1-46.3); Red Blood Cell Count 3.19 M/mm3 (3.80-5.20); White Blood Cell Count 10.49 K/mm3 (4.00-11.30)
[2024-02-06 03:48] LABS: Albumin, Blood 2.7 g/dL (3.4-5.0); Albumin/Globulin Ratio 0.8 (0.8-1.8); Bilirubin, Total 0.5 mg/dL (0.1-1.0); Bun/Creatinine Ratio 21.3 (12.0-20.0); Creatinine, Blood 0.61 mg/dL (0.40-1.00); Globulin, Blood 3.5 g/dL (2.2-4.0); Potassium, Blood 3.9 mmol/L (3.5-5.5); Total Protein, Blood 6.2 g/dL (6.4-8.2)
--- NOTE | 2024-02-06 06:41 | NUR ---
SHIFT SUMMERY PT HAS BECOME MUCH MORE ALERT OVERNIGHT, ORIENTED X 4 AT THIS TIME. NO SEIZURE ACTIVITY THIS SHIFT. PT HAS BEEN SR ON THE CARDIAC MONTIOR. BP WNL. AFEBRILE. 6LNC W/OXYGEN SAT >92%. PANG CATH INTACT PATENT AND DRAINING TO GRAVITY. RIGHT SIDE WEAKER THAN LEFT BUT ABLE TO MOVE.
--- NOTE | 2024-02-06 07:15 | NUR ---
ASSUMPTION OF CARE: ASSUMED CARE OF PATIENT. PATIENT SLEEPING SOUNDLY. WITH VERBAL AND GENTLE PHYSICAL STIMULI, PATIENT AWAKENS. ANSWERING QUESTIONS, BUT VERY SLEEPY. HR IN THE 60S. BP STABLE. SPO2 >94% ON 5L VIA NC. PANG IN PLACE AND DRAINING YELLOW URINE. PATIENT SALINE LOCKED.
[2024-02-06] MEDS ORDERED: Azithromycin 500 MG in NS 250 ML IV SCH (09:00)
[2024-02-06] MEDS ORDERED: Enoxaparin 40 MG/0.4 ML SYR SC SCH (09:00)
[2024-02-06] MEDS ORDERED: CefTRIAXone Sodium 1,000 MG in NS 100 ML IV SCH (11:00)
--- NOTE | 2024-02-06 13:28 | NUR ---
Spiritual Care Visit. pt. is awake in bed when she welcomes my visit. Pt. displays evidence of being pleasantly confused. This chaplaian chose to keep this visit short and encouraging. Attempted to facilitate a short life review. Prayed for the Pt. Pt. grabbed this chaplains hand and verbalized gratitude for the spiritual care visit.
--- NOTE | 2024-02-06 17:29 | NUR ---
SHIFT SUMMARY: NEURO: PATIENT ALERT AND ORIENTED TO SELF, , AND LOCATION A HOSPITAL. PATIENT REPORTED IT WAS 1950 AND UNSURE OF THE DAY OR TIME. PATIENT FOLLOWING DIRECTIONS. PATIENT HAS ROM AND EQUAL STRENTH ACROSS THE UPPER EXTREMITIES. PATIENT IS ABLE TO MOVE LEFT LEG INDEPEDENTLY AND REPORTS SHE IS ABLE TO STAND PIVOT TO A WHEELCHAIR USING THIS LEG. MINIMAL MOVEMENT IN THE RIGHT LEG AT BASELINE. PATIENT ABLE TO ASSIST WITH REPOSITIONING. PROPHYLACTIC MEPILEX IN PLACE ON COCCYX. LEFT PUPIL IS FIXED AND ABOUT 8MM AT BASELINE. CARDIAC: PATIENT DENIES CHEST PAIN OR DISCOMFORT. HR IN THE MID 50S-60S. BLOOD PRESSURES STABLE WITH MAPS>65. RESPIRATORY: PATIENT TITRATED OFF OF O2 DURING THE DAY. WHILE THE PATIENT IS AWAKE, SHE WAS STABLE ON ROOM AIR WITH SPO2 >92%. PATIENT DENIES DIFFICULTY BREATHING. PATIENT HAS A PRODUCTIVE COUGH. GI/: PANG PULLED THIS AM. PATIENT HAS VOIDED SINCE. PATIENT PASSED SWALLOW EVALUATION AND ATE HER LUNCH WITH SET UP ASSISTANCE ONLY (STAFF AT BEDSIDE TO MONITOR). PATIENT HAD A LARGE FIRM/HARD BOWEL MOVEMENT TODAY. PATIENT HAS A MODERATE APPETITE. NO DIFFICULTY SWALLOWING OR SIGNS OF ASPIRATION NOTED. PSYCHSOCIAL: PATIENT'S SPOUSE AT BEDSIDE. HE REPORTS THAT THEY HAVE A PUREWICK, WHEELCHAIR AND HOSPITAL BED FOR HER AT THEIR HOUSE. HE WAS SUPPORTIVE OF THE PATIENT AND REPORTS THAT HE WILL BE BACK TOMORROW TO VISIT AGAIN.
--- NOTE | 2024-02-06 17:56 | NUR ---
SEIZURE MEDICATIONS: DR. DIAZ CALLED TO CHECK ON THE PATIENT. PROVIDED WITH A QUICK UPDATE. PHARMACY HAD CALLED RN TO CLARIFY PATIENT'S HOME ANTI-SEIZURE MEDICATIONS. DISCUSSED WITH DR. DIAZ AND CORRECT DOSING RECEIVED. DISCUSSED WITH DR. MATTSON. NEW ORDERS TO CORRECT PATIENT'S LAMICTAL AND TRILEPTAL DOSING IN THE HOSPITAL.
[2024-02-06] MEDS ORDERED: LAMO100 PO (18:00)
[2024-02-06] MEDS ORDERED: OXcarbazepine 300 MG Tab PO SCH ×2 (21:00)
[2024-02-06] MEDS ORDERED: LamoTRIgine 100 MG Tab PO SCH ×2 (21:00)
[2024-02-06 21:40] LABS: LAMOTRIGINE 6.9 ug/mL (3.0-15.0)
[2024-02-07] VITALS: BP 153/83
[2024-02-07 03:37] LABS: BASOPHILS ABSOLUTE AUTO 0.04 K/mm3 (0.00-0.23); BASOPHILS PERCENT AUTO 1 % (0-2); EOSINOPHILS ABSOLUTE AUTO 0.16 K/mm3 (0.00-0.68); EOSINOPHILS PERCENT AUTO 3 % (0-6); Hematocrit 28.1 % (33.0-51.0); Hemoglobin 9.7 g/dL (11.5-16.0); IMMATURE GRAN ABSOLUTE AUTO 0.02 K/mm3 (0.00-0.10); IMMATURE GRAN PERCENT AUTO 0 % (0-1); LYMPHOCYTES ABSOLUTE AUTO 2.15 K/mm3 (0.84-5.20); LYMPHOCYTES PERCENT AUTO 34 % (21-46); MONOCYTES ABSOLUTE AUTO 0.51 K/mm3 (0.16-1.47); MONOCYTES PERCENT AUTO 8 % (4-13); Mean Corpuscular HGB 32.2 pg (26.0-34.0); Mean Corpuscular HGB Conc 34.5 g/dL (31.5-36.5); Mean Corpuscular Volume 93 fL (80-100); Mean Platelet Volume 8.5 fL (9.1-12.4); NEUTROPHILS PERCENT AUTO 54 % (41-73); Platelet Count 256 K/mm3 (150-400); RDW Coefficient Variation 13.2 % (11.7-14.2); RDW Standard Deviation 45.1 fL (35.1-46.3); Red Blood Cell Count 3.01 M/mm3 (3.80-5.20); White Blood Cell Count 6.28 K/mm3 (4.00-11.30)
[2024-02-07 04:00] VITALS: BP 153/77
[2024-02-07 04:00] LABS: Bun/Creatinine Ratio 22.6 (12.0-20.0); Creatinine, Blood 0.44 mg/dL (0.40-1.00); Potassium, Blood 3.4 mmol/L (3.5-5.5)
[2024-02-07] MEDS ORDERED: Potassium Chloride 20 MEQ/15 ML UDC PO ONE (05:40)
--- NOTE | 2024-02-07 05:40 | NUR ---
TRANSFER PT TRANSFERRED TO PCU 01 VIA BED. ALERT AND ORIENTED X2, PLEASANT W/NO COMPLAINTS. REPORT GIVEN TO FABIANA WHEAT RN.
--- NOTE | 2024-02-07 05:50 | NUR ---
ASSUMPTION OF CARE ASSUMED CARE OF PT AT 0530 FOR AURELIO HORN FROM ICU. PT IS AWAKE AND ALERT. PT TOLERATED TRANSFER WELL. TELE SHOWS SR @ 60S. RESTING WITH EYES CLOSED, BED IN LOWEST POSTION, CALL LIGHT IN REACH.
[2024-02-07 05:57] VITALS: BP 177/89
[2024-02-07] MEDS ORDERED: Potassium Chl 20MEQ/Water100ML 100 ML IV STA (06:26)
[2024-02-07 07:33] VITALS: BP 153/97
[2024-02-07] MEDS ORDERED: Aspirin 81 MG Chew PO SCH (09:00)
[2024-02-07] MEDS ORDERED: LamoTRIgine 100 MG Tab PO SCH (09:00)
[2024-02-07 12:14] VITALS: BP 160/95
[2024-02-07] MEDS ORDERED: LEVAQUIN750 MG PO (13:13)
[2024-02-07] MEDS ORDERED: VISBIOME 112.51 EACH PO (13:15)
--- NOTE | 2024-02-07 16:23 | NUR ---
DISCHARGE UPDATE DISCHARGE PACKET GONE OVER WITH AT 1530. THIS RN ATTEMPTED TO CALL TO GO OVER DISCHARGE INSTRUCTIONS, NO ANSWER. PT DISCHARGED AT 1420 VIA WHEELCHAIR AND ON RA. DISCHARGE PACKET WITH PT DURING DISCHARGE. FACE SHEET PROVIDED TO TRANSPORT AND TRANSPORT INFORMED THAT PT IS IN HER PERSONAL WHEELCHAIR.
[2024-02-08 20:51] LABS: CK TOTAL 33 U/L (26-192); CK-BB 0 % (0-0); CK-MACRO TYPE I 0 % (0-0); CK-MACRO TYPE II 0 % (0-0); CK-MB 0 % (0-4); CK-MM 100 % (96-100)
[2024-02-10 14:27] LABS: 11-NOR-9-CARBOXY-THC,URN,QUANT 411 ng/mL
== END 2024-02-07 16:59 | disposition home health service (06) | DRG 100 ==
LOC: ER 10:56 → ICUE 14:40 → PCU 14:40 → ICUE 17:49 → PCU 02-07 05:33
PROVIDERS: Emergency Medicine; Student in an Organized Health Care Education/Training Program; ADMIT Hospitalist
DX: G40.909 Epilepsy, unspecified, not intractable, without status epilepticus (principal); A41.50 Gram-negative sepsis, unspecified; J18.9 Pneumonia, unspecified organism; J96.01 Acute respiratory failure with hypoxia; R65.20 Severe sepsis without septic shock; I10 Essential (primary) hypertension; E78.5 Hyperlipidemia, unspecified; Z96.641 Presence of right artificial hip joint; E89.0 Postprocedural hypothyroidism; Z74.01 Bed confinement status; Z88.8 Allergy status to other drugs, medicaments and biological substances; Z79.82 Long term (current) use of aspirin; Z79.899 Other long term (current) drug therapy; Z87.891 Personal history of nicotine dependence
CPT/HCPCS: 0241U; 31720; 36415; 51702; 70450; 71045; 80048; 80053; 80175; 81001; 82550; 82552; 82803; 83605; 83735; 84100; 84484; 85025; 87040; 87086; 92526; 92610; 93005; 93010; 96365-59; 96367-59; 96375-59; 97161; 97167; 97535; 99285-25; A9270; G0480; J0456; J0696; J1650; J1953; J2250; J7050; J7060